=== PATIENT | female | born 1980 | race Caucasian/White ===

== ENCOUNTER 2019-05-15 09:28 | Emergency (ER) | payer SELFPAY ==
[2019-05-15 09:32] VITALS: BP 107/57; PULSE 129; RESP 18; O2SAT 98; BMI 33.4
[2019-05-15 09:53] VITALS: PULSE 126
--- NOTE | 2019-05-15 09:55 | PC.NURSE ---
Patient presents to the ER with c/o right leg pain post fall. Patient states just prior to arrival she was chasing a dog and fell, rolling onto her right leg. Patient has pain starting at the foot and moving up her leg. Pain is rated 7/10 at this time.
--- NOTE | 2019-05-15 09:59 | XR_ITS ---
WS: [id number] XR knee RT 3V* [id number] REASON FOR EXAM: fall/pain FINDINGS: Meniscal spaces are well preserved. The patellofemoral articulations are normal. The patella tibial space is normal. There is no fractures or other dyscrasias noted. XR/XR knee RT 3V* [id number] IMPRESSION: Negative right knee
--- NOTE | 2019-05-15 10:04 | W.ED.EXTPRO ---
HPI - Extremity Problem General: Chief complaint: Extremity Injury, Lower Stated complaint: RIGHT LEG PAIN Time Seen by Provider: 05/15/19 09:47 Source: patient Mode of arrival: wheelchair Limitations: no limitations History of Present Illness: HPI Narrative: Patient is a 38-year-old female presents to ED today with complaints of right lower extremity pain. Patient states she was chasing her dog who got loose and did a roll dive to try to catch him. Patient states she was able to catch the dog and walked back to her residence but states over time she began noticing pain from her toe all the way up to her hip . Patient is able to ambulate but with a limp. She denies numbness/tingling to the extremity. Denies swelling. MD Complaint: extremity pain Onset (ago): hour(s) Pain Consistency: constant Location: right Relieving factors: nothing Exacerbating factors: range of motion, weight bearing and walking Associated symptoms: Deny chest pain, fever(s) or rash Review of Systems Const: Denies: fever or chills ENMT: Denies: enlarged tonsils or painful swallowing Card: Denies: chest pain, palpitations, irregular heart rhythm, edema, swelling of feet/ankles, lightheadedness, syncope or pre-syncope Resp: Denies: shortness of breath, productive cough or chest congestion GI: Denies: abdominal pain, nausea, vomiting or diarrhea : Denies: flank pain, difficulty urinating, painful urination, urinary frequency, urinary urgency or urinary hesitancy Musc: Reports: extremity pain and joint pain; Denies: neck pain, back pain, extremity swelling, joint swelling, redness, joint warmth or limited range of motion Skin/Breast: Denies: rash Neuro: Denies: headache, numbness in extremities, weakness in extremities or changes in sensation PFS ED PFSH: Social History (Updated 04/14/19 @ 12:46 by Anita Reynoso LPN) Smoking and tobacco status: never smoked Physical Exam Const: COMMON NORMALS: no apparent distress, no limitations, alert and well nourished Resp: COMMON NORMALS: normal respiratory effort and clear to auscultation bilaterally AUSCULTATION: clear to auscultation bilaterally Cardio: COMMON NORMALS: regular rate and regular rhythm RATE: regular rate RHYTHM: regular rhythm Extremity: COMMON NORMALS: full ROM, normal capillary refill, no joint enlargement and no calf tenderness OTHER: pt has full ROM of all joint of R LE; she seems to be the most tender around R anterior knee; no swelling noted to R leg; DP/PT pulses intact; brisk cap refill Neuro: SENSORIUM/ORIENTATION: Yes alert Skin: COMMON NORMALS: no rashes or lesions noted GENERAL SKIN EXAM: no rashes or lesions noted Course Vital Signs: Vital signs: Vital Signs Pulse Rate 102 H 05/15/19 11:10 Respiratory Rate 16 05/15/19 11:10 Blood Pressure 102/81 05/15/19 11:10 Pulse Oximetry 96 05/15/19 11:10 MDM - Extremity (Nontraumatic) Imaging Data^: R knee XR: Radiologist's impression: [address] [address] XRay Report Signed Patient: Brigitte Marr Unit #: [id number] : 1980 Age/Sex: 38 / F ADM Date: 05/15/19 Loc: ER Room/Bed: Attending Dr: Ordering Provider/Ordering MD: Lu Berman Date of Service: 05/15/19 Procedure(s): XR knee RT 3V* [id number] Accession Number(s): [id number] Report Number: [id number] WS: [id number] XR knee RT 3V* [id number] REASON FOR EXAM: fall/pain FINDINGS: Meniscal spaces are well preserved. The patellofemoral articulations are normal. The patella tibial space is normal. There is no fractures or other dyscrasias noted. XR/XR knee RT 3V* [id number] IMPRESSION: Negative right knee Dictated By: Pasha Ryan DO Signed By: Pasha Ryan DO Signed Date/Time: 05/15/19 1048 DD/ 1047 Discharge Plan Discharge Patient Disposition: Home, Self-Care Clinical Impression: Sprain of right lower leg Qualifiers: Encounter type: initial encounter Qualified Code(s): S83.91XA - Sprain of unspecified site of right knee, initial encounter Condition: Stable Prescriptions: No Action Breo Ellipta 100-25 mcg/dose blister with device 1 inh INHALATION Q24H RF: 0 albuterol sulfate [Proventil HFA] 90 mcg/actuation HFA aerosol inhaler 2 puff INHALATION Q6H PRN (Reason: Shortness Of Breath) RF: 0 fexofenadine 180 mg tablet 180 mg PO DAILY RF: 0 montelukast 10 mg tablet 10 mg PO DAILY RF: 0 fluticasone propionate [Allergy Relief (fluticasone)] 50 mcg/actuation spray,suspension 1 - 2 spray INTRANASAL DAILY RF: 0 desogestrel-ethinyl estradiol [Apri] 0.15-0.03 mg tablet 1 tab PO DAILY RF: 0 albuterol sulfate 2.5 mg /3 mL (0.083 %) Solution For Nebulization 2.5 mg inhalation PRN RF: 0 Excedrin Migraine 250-250-65 mg Tablet 2 tab PO PRN RF: 0 Discharge Orders: Discharge Order (Routine); Ordered 05/15/19 Ordered By: Lu Berman Referrals: Flori Pitt MD [Primary Care Provider] - Discharge Diet: Usual diet Discharge Activity: Increase activity as tolerated and Use walker/crutches as instructed Activity Restrictions/Additional Instructions: Follow up with primary care in a week for continued pain. 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
[2019-05-15] MEDS: ketorolac 60 mg/2 mL INJ IM (10:09)
[2019-05-15 11:10] VITALS: BP 102/81; PULSE 102; RESP 16; O2SAT 96
== END 2019-05-15 11:10 | disposition home or self-care (01) ==
PROVIDERS: Emergency Provider Physician Assistant; Family Provider Family Medicine; PCP Family Medicine
DX: S83.91XA Sprain of unspecified site of right knee, initial encounter (principal); X50.0XXA Overexertion from strenuous movement or load, initial encounter
CPT/HCPCS: 73562; 96372; 99281; 99283; J1885

== ENCOUNTER → 2019-08-10 10:06 | Outpatient (BNVA) | payer SELFPAY | PROVIDERS: Family Provider Family Medicine; PCP Family Medicine; Visit Provider Nurse Practitioner Family | DX: N39.0 Urinary tract infection, site not specified (principal) | CPT/HCPCS: 81000 ==

== ENCOUNTER 2019-08-19 22:00 | Emergency (ER) | payer OTHER, SELFPAY ==
[2019-08-19 22:10] VITALS: BP 118/74; PULSE 80; RESP 16; TEMP 36.7; O2SAT 97; BMI 31.9
--- NOTE | 2019-08-19 22:50 | ED_ITS ---
HPI - Extremity Problem General: Chief complaint: Extremity Injury, Upper Stated complaint: arm swelling Time Seen by Provider: 08/19/19 22:37 History of Present Illness: HPI Narrative: 39-year-old female with multiple complaints. Her main complaint is that of right upper extremity pain and swelling. Pain starts at the elbow, and radiates down towards the wrist. There is swelling present. There is no numbness or tingling. She does note she has some numbness and pain in her left thumb without swelling. She also notes bilateral ankle swelling and pain, worsening with weightbearing. She denies any fever, rash, warmth. She denies long car trips. No prior history of DVT. MD Complaint: extremity pain and extremity swelling Onset (ago): day(s) (2) Pain Consistency: constant Location: right and upper extremity Quality: aching Radiation: distal Relieving factors: nothing Exacerbating factors: range of motion and palpation Associated symptoms: Deny chest pain, fever(s), rash or short of breath Review of Systems Const: Denies: fever(s) Eyes: Denies: change in vision or blurry vision ENMT: Denies: swelling of lips/tongue, bleeding gums, change in hearing, epist axis, post nasal drip or sinus pain Card: Denies: chest pain Resp: Denies: dyspnea, productive cough, non-productive cough or wheezing GI: Denies: abdominal pain, nausea, vomiting, rectal pain, hematochezia or melena : Denies: dysuria, urinary frequency, urinary urgency or hematuria Musc: Denies: neck pain, back pain, joint redness or joint warmth Skin/Breast: Denies: rash, pruritus or erythema Neuro: Denies: headache(s), dizziness, vertigo, confusion or seizure-like activity Psych: Denies: anxiety, visual hallucinations or auditory hallucinations PFSH ED PFSH: Social History Smoking and tobacco status: never smoked Female Reproductive History: Date of last menstrual period: 08/11/19 Physical Exam Const: GENERAL APPEARANCE: well developed ORIENTATION/CONSCIOUSNESS: Yes oriented to person, Yes oriented to place and Yes oriented to time HENMT: COMMON NORMALS: normocephalic, external ears normal and Normal external nose present HEAD & SCALP: normocephalic; no scalp tenderness FACE & SINUS: normal facial exam NOSE: Normal external nose present and No nasal discharge present EXTERNAL EAR: Yes external ears normal MOUTH: tongue normal THROAT: posterior oropharynx normal; no peritonsillar mass Eye: COMMON NORMALS: Equal, round and reactive pupils present, EOMs intact bilaterally and conjunctivae normal EYELID: eyelids normal CONJUNCTIVA: Yes conjunctivae normal PUPIL: Yes Equal, round and reactive pupils present Neck/C-Spine: GENERAL: No tracheal deviation Chest: COMMONS NORMALS: normal inspection of the chest CHEST: No tenderness Resp: COMMON NORMALS: clear to auscultation bilaterally EFFORT & INSPECTION: No tachypneic, No respiratory distress, No retractions, No uses accessory muscles and No tracheal deviation AUSCULTATION: clear to auscultation bilaterally, no rhonchi, no wheezes and lung sounds not diminished Cardio: COMMON NORMALS: regular rate and regular rhythm RATE: regular rate RHYTHM: regular rhythm HEART SOUNDS: no murmurs PERIPHERAL PULSES: radial pulses present GI: INSPECTION: No abdominal distension AUSCULTATION: No Hyperactive bowel sounds present and No Hypoactive bowel sounds present PALPATION: No Guarding due to palpation present (GI) and No Rigid due to palpation PERCUSSION: no dullness to percussion and no tympanic to percussion : COMMON NORMALS: Yes no CVA tenderness BLADDER/KIDNEY EXAM: Yes no CVA tenderness Back/Pelvis: COMMON NORMALS: no CVA tenderness Extremity: NARRATIVE EXTREMITY EXAM: Right upper extremity has some mild to moderate swelling distal to the elbow. There is mild tenderness along the forearm. There is no point tenderness. There is no elbow effusion. She has pain with elbow range of motion, but not with wrist range of motion. There is no warmth or rash Neuro: SENSORIUM/ORIENTATION: Yes oriented to person, Yes oriented to place and Yes oriented to time Psych: COMMON NORMALS: mental status grossly normal Skin: COMMON NORMALS: no rashes or lesions noted GENERAL SKIN EXAM: no rashes or lesions noted Course Vital Signs: Vital signs: Vital Signs Temperature 98.1 F 08/19/19 22:10 Pulse Rate 86 08/20/19 01:45 Respiratory Rate 18 08/20/19 01:45 Blood Pressure 108/83 08/20/19 01:45 Pulse Oximetry 97 08/20/19 01:45 MDM - Extremity (Nontraumatic) MDM Narrative: Medical decision making narrative: The 9-year-old female with right upper extremity discomfort and swelling. Her d-dimer is negative. Elbow x-ray is negative. Her ESR and CRP are not terribly elevated. She is afebrile. On further questioning, she recently completed a 7-day course of ciprofloxacin for a UTI. It is likely that she has acute tendinitis related to use of fluoroquinolone. Should be treated with a burst of steroid medication. She is now off of the Cipro. Lab Data: Labs: Lab Results 08/19/19 08/19/19 08/19/19 Range/Units 23:04 23:04 23:04 WBC 10.8 H (4.0-10.0) 10^3/ uL RBC 4.20 (4.1-5.3) 10^6/u L Hgb 12.2 (11.5-15.3) g/dL Hct 38.1 (37.0-47.0) % MCV 90.7 (81-99) fL MCH 29.0 (28.0-34.0) pg MCHC 32.0 (30.0-36.0) g/dL RDW 12.2 (12.1-15.1) % Plt Count 304 (130-400) 10^3/c mm MPV 9.7 (7.4-10.4) fL Neut % (Auto) 58.1 % Lymph % (Auto) 30.3 % Donley % (Auto) 6.5 % Eos % (Auto) 4.1 % Baso % (Auto) 0.5 % Neut # (Auto) 6.3 (1.8-7.7) 10^3/u L Lymph # (Auto) 3.3 (0.8-4.8) 10^3/u L Donley # (Auto) 0.7 (0.2-0.9) 10^3/u L Eos # (Auto) 0.4 (0.0-0.8) 10^3/u L Baso # (Auto) 0.1 (0.0-0.1) 10^3/u L Nucleated RBC % (a uto) 0 % Nucleated RBCs # 0.0 /100WBC ESR 20 H (0-15) mm/hr D-Dimer 0.41 (0-0.59) ug/mIFE U Sodium (136-145) mmol/L Potassium (3.5-5.1) mmol/L Chloride (98-107) mmol/L Carbon Dioxide (22-29) mmol/L Anion Gap (5-19) BUN (6-20) mg/dL Creatinine (0.5-0.9) mg/dL GFR Calculation (90-130) mL/min Glucose (65-115) mg/dL Calculated Osmolal ity (285-295) mOsm/k g Uric Acid (2.4-5.7) mg/dL Calcium (8.5-10.5) mg/dL Total Bilirubin (0.15-1.2) mg/dL AST (0-32) U/L ALT (0-33) U/L Alkaline Phosphata se (35-105) IU/L Creatine Kinase (26-192) U/L C-Reactive Protein (0.0-4.9) mg/L Total Protein (6.6-8.7) g/dL Albumin (3.5-5.2) g/dL Globulin (1.3-4.6) g/dL HCG, Qual (Negative) Urine Color (Yellow) Urine Appearance (CLEAR) Urine pH (5-7) Ur Specific Gravit y (1.005-1.030) Urine Protein (Negative) Urine Glucose (UA) (Normal) Urine Ketones (Negative) Urine Blood (Negative) Urine Nitrate (Negative) Urine Bilirubin (NEGATIVE) Urine Urobilinogen (Negative) mg/dL Ur Leukocyte Cortney ase (Negative) Urine RBC (0-2) /hpf Urine WBC (0-5) /hpf Ur Squamous Epith Cells (0-5) Urine Bacteria (NONE) Urine Mucus 08/19/19 08/19/19 08/20/19 Range/Units 23:04 23:04 01:05 WBC (4.0-10.0) 10^3/ uL RBC (4.1-5.3) 10^6/u L Hgb (11.5-15.3) g/dL Hct (37.0-47.0) % MCV (81-99) fL MCH (28.0-34.0) pg MCHC (30.0-36.0) g/dL RDW (12.1-15.1) % Plt Count (130-400) 10^3/c mm MPV (7.4-10.4) fL Neut % (Auto) % Lymph % (Auto) % Donley % (Auto) % Eos % (Auto) % Baso % (Auto) % Neut # (Auto) (1.8-7.7) 10^3/u L Lymph # (Auto) (0.8-4.8) 10^3/u L Donley # (Auto) (0.2-0.9) 10^3/u L Eos # (Auto) (0.0-0.8) 10^3/u L Baso # (Auto) (0.0-0.1) 10^3/u L Nucleated RBC % (a uto) % Nucleated RBCs # /100WBC ESR (0-15) mm/hr D-Dimer (0-0.59) ug/mIFE U Sodium 138 (136-145) mmol/L Potassium 3.8 (3.5-5.1) mmol/L Chloride 102 (98-107) mmol/L Carbon Dioxide 25 (22-29) mmol/L Anion Gap 14.8 (5-19) BUN 13 (6-20) mg/dL Creatinine 0.9 (0.5-0.9) mg/dL GFR Calculation 70.1 L (90-130) mL/min Glucose 95 (65-115) mg/dL Calculated Osmolal ity 282 L (285-295) mOsm/k g Uric Acid 4.7 (2.4-5.7) mg/dL Calcium 9.9 (8.5-10.5) mg/dL Total Bilirubin 0.2 (0.15-1.2) mg/dL AST 19 (0-32) U/L ALT 15 (0-33) U/L Alkaline Phosphata se 74 (35-105) IU/L Creatine Kinase 85 (26-192) U/L C-Reactive Protein 8.1 H (0.0-4.9) mg/L Total Protein 7.7 (6.6-8.7) g/dL Albumin 4.3 (3.5-5.2) g/dL Globulin 3.4 (1.3-4.6) g/dL HCG, Qual Negative (Negative) Urine Color Yellow (Yellow) Urine Appearance Sl hazy (CLEAR) Urine pH 5 (5-7) Ur Specific Gravit y 1.020 (1.005-1.030) Urine Protein Neg (Negative) Urine Glucose (UA) Norm (Normal) Urine Ketones Negative (Negative) Urine Blood Neg (Negative) Urine Nitrate Negative (Negative) Urine Bilirubin Neg (NEGATIVE) Urine Urobilinogen Norm (Negative) mg/dL Ur Leukocyte Cortney ase Negative (Negative) Urine RBC Rare (0-2) /hpf Urine WBC 0-4 H (0-5) /hpf Ur Squamous Epith Cells 15-25 H (0-5) Urine Bacteria Trace (NONE) Urine Mucus 1+ Discharge Plan Discharge Patient Disposition: Home, Self-Care Clinical Impression: Tendonitis of elbow or forearm Condition: Stable Prescriptions: New Medrol (Jarod) 4 mg tablets,dose pack See Rx Instructions .ROUTE .COMPLEX Qty: 21 RF: 0 No Action mupirocin 2 % ointment 1 applic TOPICAL TID Qty: 30 RF: 0 Breo Ellipta 100-25 mcg/dose blister with device 1 inh INHALATION Q24H RF: 0 albuterol sulfate [Proventil HFA] 90 mcg/actuation HFA aerosol inhaler 2 puff INHALATION Q6H PRN (Reason: Shortness Of Breath) RF: 0 fexofenadine 180 mg tablet 180 mg PO DAILY RF: 0 montelukast 10 mg tablet 10 mg PO DAILY RF: 0 fluticasone propionate [Allergy Relief (fluticasone)] 50 mcg/actuation spray,suspension 1 - 2 spray INTRANASAL DAILY RF: 0 desogestrel-ethinyl estradiol [Apri] 0.15-0.03 mg tablet 1 tab PO DAILY RF: 0 ciprofloxacin HCl [Cipro] 500 mg tablet 500 mg PO BID 7 Days Qty: 14 RF: 0 albuterol sulfate 2.5 mg /3 mL (0.083 %) Solution For Nebulization 2.5 mg inhalation PRN RF: 0 Excedrin Migraine 250-250-65 mg Tablet 2 tab PO PRN RF: 0 Discharge Orders: Discharge Order (Routine); Ordered 08/20/19 Ordered By: Kelvin Muñiz Referrals: Flori Pitt MD [Primary Care Provider] - 4-7 days Discharge Diet: Advance as tolerated Discharge Activity: Increase activity as tolerated Patient Instructions: Tendinitis (ED) Activity Restrictions/Additional Instructions: Return for fever, worsening pain or swelling despite treatment, other concerning symptoms Discharge Date/Time: 08/20/19 01:50 Coding Level of Care Code 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
--- NOTE | 2019-08-19 23:00 | XRR_ITS ---
PROCEDURE INFORMATION: Exam: XR Right Elbow Exam date and time: 08/19/2019 11:02 PM Age: 39 years old Clinical indication: Swelling; Elbow; Right; Additional info: Pain TECHNIQUE: Imaging protocol: XR Right elbow. Views: 3 or more views. COMPARISON: No relevant prior studies available. FINDINGS: Bones/joints: Normal. Soft tissues: Normal. XR/XR elbow RT min 3V* [id number] IMPRESSION: No acute findings.
[2019-08-19 23:15] LABS: Basophils # 0.1 10^3/uL (0.0-0.1); Basophils % 0.5 %; Eosinophils # 0.4 10^3/uL (0.0-0.8); Eosinophils % 4.1 %; Hematocrit 38.1 % (37.0-47.0); Hemoglobin 12.2 g/dL (11.5-15.3); Lymphocytes # 3.3 10^3/uL (0.8-4.8); Lymphocytes % 30.3 %; Mean Corpuscular Volume 90.7 fL (81-99); Mean Platelet Volume 9.7 fL (7.4-10.4); Monocytes # 0.7 10^3/uL (0.2-0.9); Monocytes % 6.5 %; Neutrophils # 6.3 10^3/uL (1.8-7.7); Neutrophils % 58.1 %; Nucleated Red Blood Cells % 0 %; Platelet Count 304 10^3/cmm (130-400); Red Cell Distribution Width 12.2 % (12.1-15.1); White Blood Count 10.8 10^3/uL (4.0-10.0)
[2019-08-19 23:26] LABS: D Dimer 0.41 ug/mIFEU (0-0.59)
[2019-08-19 23:27] LABS: HCG, Serum Qual Negative (Negative)
[2019-08-19 23:33] LABS: Alanine Aminotransferase 15 U/L (0-33); Albumin Level 4.3 g/dL (3.5-5.2); Alkaline Phosphatase 74 IU/L (35-105); Anion Gap 14.8 (5-19); Aspartate Amino Transferase 19 U/L (0-32); Blood Urea Nitrogen 13 mg/dL (6-20); C Reactive Protein 8.1 mg/L (0.0-4.9); Calcium 9.9 mg/dL (8.5-10.5); Carbon Dioxide 25 mmol/L (22-29); Chloride 102 mmol/L (98-107); Creatine Phosphokinase 85 U/L (26-192); Globulin 3.4 g/dL (1.3-4.6); Glomerular Filtration Rate 70.1 mL/min (90-130); Glucose 95 mg/dL (65-115); Osmolality Calculated 282 mOsm/kg (285-295); Potassium 3.8 mmol/L (3.5-5.1); Sodium 138 mmol/L (136-145); Total Bilirubin 0.2 mg/dL (0.15-1.2); Total Protein 7.7 g/dL (6.6-8.7); Uric Acid 4.7 mg/dL (2.4-5.7)
[2019-08-20 00:18] LABS: Erythrocyte Sedimentation Rate 20 mm/hr (0-15)
[2019-08-20 00:59] VITALS: BP 135/87; PULSE 78; PULSE 86; RESP 18; O2SAT 99
[2019-08-20 01:26] LABS: Add Urine Microscopic? YES; Bilirubin Urine Neg (NEGATIVE); Blood Urine Neg (Negative); Glucose Urine UA Norm (Normal); Ketones Urine Negative (Negative); Leukocyte Esterase Urine Negative (Negative); Nitrate Urine Negative (Negative); Protein Urine Neg (Negative); Urine Appearance SL Hazy (CLEAR); Urine Color Yellow (Yellow); Urobilinogen Urine Norm (Negative); pH Urine 5 (5-7)
[2019-08-20 01:28] LABS: Bacteria Urine TRACE; RBC Urine RARE /hpf (0-2); Squamous Epithelial Cell Urine 15-25 (0-5); WBC Urine 0-4 /hpf (0-5)
[2019-08-20 01:29] LABS: Add Urine Culture? No; Mucus Urine 1+
[2019-08-20] MEDS: predniSONE 20 mg Tablet 40 MG PO (01:36)
[2019-08-20 01:45] VITALS: BP 108/83; PULSE 86; RESP 18; O2SAT 97
== END 2019-08-20 01:50 | disposition home or self-care (01) ==
PROVIDERS: Emergency Provider Emergency Medicine; PCP Family Medicine
DX: M77.9 Enthesopathy, unspecified (principal)
CPT/HCPCS: 12345; 36415; 73080; 80053; 81001; 82550; 84550; 84703; 85025; 85378; 85651; 86140; 99282; 99283; J7512

== ENCOUNTER 2019-10-11 14:16 | Emergency (ER) | payer OTHER, SELFPAY ==
[2019-10-11 14:18] VITALS: BMI 31.9
[2019-10-11 14:22] VITALS: BP 127/92; PULSE 83; RESP 16; TEMP 36.7; O2SAT 96
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
[2019-10-11] MEDS: HYDROcodone-acetaminophen 7.5-325 mg Tablet 1 TAB PO (14:45)
[2019-10-11 16:45] VITALS: BP 115/64; PULSE 76; RESP 17; O2SAT 98
== END 2019-10-11 16:46 | disposition home or self-care (01) ==
PROVIDERS: Emergency Provider Emergency Medicine; PCP Nurse Practitioner Family
DX: S13.4XXA Sprain of ligaments of cervical spine, initial encounter (principal); M25.512 Pain in left shoulder; V43.52XA Car driver injured in collision with other type car in traffic accident, initial encounter
CPT/HCPCS: 12345; 71045; 72040; 73030; 99282; 99283

== ENCOUNTER 2019-11-01 06:56 | Outpatient (CLI) | payer SELFPAY ==
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
== END 2019-11-01 06:57 | disposition home or self-care (01) ==
LOC: RADSHAW 06:59
PROVIDERS: PCP Nurse Practitioner Family; Visit Provider Nurse Practitioner Family
DX: S43.52XA Sprain of left acromioclavicular joint, initial encounter (principal); X58.XXXA Exposure to other specified factors, initial encounter
CPT/HCPCS: 73221

== ENCOUNTER 2019-12-27 16:55 | Emergency (ER) | payer SELFPAY ==
--- NOTE | 2019-12-27 16:56 | XR_ITS ---
WS: [id number] Portable AP upright chest, 12/27/2019 Clinical Data: sob Comparison: Portable chest, 10/11/2019. Findings: No nodules, masses or effusions are seen. The heart is normal. The pulmonary vascularity is not increased. No pneumonia or pneumothorax is seen. XR/XR chest 1V portable [id number] Impression: Negative chest.
[2019-12-27 17:17] VITALS: BP 130/102; PULSE 87; RESP 18; TEMP 37; O2SAT 100; BMI 33.4
[2019-12-27 17:36] VITALS: BP 118/58; PULSE 100; RESP 20; O2SAT 98
--- NOTE | 2019-12-27 17:37 | ECG_ITS ---
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 Measurements Intervals B[place]e Rate: 93 P: 49 NM: 155 QRS: 13 QRSD: 85 T: 14 QT: 353 QTc: 440 Interpretive Statements SINUS RHYTHM LOW QRS VOLTAGE IN PRECORDIAL LEADS [QRS DEFLECTION < 1.0 mV IN CHEST LEADS] POSSIBLE ANTERIOR MYOCARDIAL INFARCTION [30 ms Q WAVE IN V3/V4, OR R < 0.2 mV IN V4], OF INDETERMINATE AGE Compared to ECG 01/13/2019 21:29:55 Low QRS voltage now present Sinus arrhythmia no longer present Myocardial infarct finding still present Electronically Signed On 12-27-2019 18:36:40 CDT by Earle Guzmán M.D. [id number]
--- NOTE | 2019-12-27 17:40 | ED_ITS ---
HPI - SOB/Dyspnea General: Chief Complaint: Shortness of Breath/Dyspnea Stated Complaint: COVID SYMPTOMS Time Seen by Provider: 12/27/19 17:22 Source: patient Mode of arrival: ambulatory Limitations: no limitations History of Present Illness: HPI Narrative: 39-year-old female states she has history of asthma and has had a cough along with some slight dyspnea over the last 4 to 5 days. She has had low-grade fevers. She states she is concerned that she has had multiple coworkers that is had coronavirus. She denies any vomiting or diarrhea. She denies any chest pain. Patient is in no distress here and has a pulse ox of 99% on room air. Associated symptoms: Deny abdominal pain, chest pain, fever(s), nausea or vomiting Review of Systems Const: Denies: fever(s), chills, body aches or change in appetite Eyes: Denies: blurry vision or eye discomfort ENMT: Denies: throat pain or dental pain Card: Denies: chest pain Resp: Reports: dyspnea, non-productive cough and wheezing GI: Denies: abdominal pain, nausea, vomiting or diarrhea : Denies: dysuria Musc: Denies: neck pain or back pain Skin/Breast: Denies: rash Neuro: Denies: headache(s) Psych: Denies: depression Silvio/Lymph: Denies: easy bruising All/Imm: Denies: urticaria PFSH ED PFSH: Social History Smoking and tobacco status: never smoked Female Reproductive History: Date of last menstrual period: 12/27/19 Physical Exam Const: COMMON NORMALS: no acute distress, patient oriented x3 and healthy appearing HENMT: COMMON NORMALS: normocephalic and atraumatic HEAD & SCALP: normocephalic and atraumatic Eye: COMMON NORMALS: Equal, round and reactive pupils present and EOMs intact bilaterally PUPIL: Yes Equal, round and reactive pupils present Neck/C-Spine: COMMON NORMALS: full ROM and supple Chest: COMMONS NORMALS: normal inspection of the chest and normal palpation of entire chest wall Resp: COMMON NORMALS: normal respiratory effort, No retractions, No use of accessory muscles and clear to auscultation bilaterally AUSCULTATION: clear to auscultation bilaterally Cardio: COMMON NORMALS: regular rate, regular rhythm and No murmurs present (Cardio) RATE: regular rate RHYTHM: regular rhythm GI: COMMON NORMALS: Normal to inspection, nondistended, normoactive bowel sounds present, Soft to palpation, non-tender and no masses PALPATION: Yes Soft to palpation Extremity: COMMON NORMALS: normal to inspection and full ROM Neuro: COMMON NORMALS: patient oriented x3, moves all extremities and no focal motor deficits Psych: COMMON NORMALS: mental status grossly normal, Normal thought process present and cooperative THOUGHT PROCESS: Normal thought process present Skin: COMMON NORMALS: no rashes or lesions noted and no wounds GENERAL SKIN EXAM: no rashes or lesions noted Course Vital Signs: Vital signs: Vital Signs Temperature 98.6 F 12/27/19 17:17 Pulse Rate 100 12/27/19 17:36 Respiratory Rate 20 H 12/27/19 17:36 Blood Pressure 118/58 12/27/19 17:36 Pulse Oximetry 98 12/27/19 17:36 MDM - SOB/Dyspnea MDM Narrative: Medical decision making narrative: Patient presents here with cough and does have a history of asthma. She has no wheezing here but did give her Decadron and she is to continue her albuterol. She has no signs of cardiac cause or pulmonary embolism. X-ray here was clear. She has had COVID exposure and will test her for COVID and she is to self quarantine until result. She is stable for discharge and return if worsening. Imaging Data^: CXR: Attestation: I personally reviewed and interpreted this imaging study as follows: My impression: no acute abnormality Discharge Plan Discharge Patient Disposition: Home Clinical Impression: Asthma with exacerbation Qualifiers: Asthma severity: unspecified severity Asthma persistence: unspecified Qualified Code(s): J45.901 - Unspecified asthma with (acute) exacerbation Condition: Stable Prescriptions: No Action Breo Ellipta 100-25 mcg/dose blister with device 1 inh INHALATION Q24H RF: 0 albuterol sulfate [Proventil HFA] 90 mcg/actuation HFA aerosol inhaler 2 puff INHALATION Q4H PRN (Reason: Shortness Of Breath) RF: 0 fexofenadine 180 mg tablet 180 mg PO DAILY RF: 0 montelukast 10 mg tablet 10 mg PO DAILY RF: 0 fluticasone propionate [Allergy Relief (fluticasone)] 50 mcg/actuation spray,suspension 1 spray INTRANASAL DAILY PRN (Reason: UNKNOWN) RF: 0 acetaminophen [Tylenol Arthritis Pain] 650 mg Tablet Extended Release 1,300 mg PO PRN RF: 0 albuterol sulfate 2.5 mg /3 mL (0.083 %) Solution For Nebulization 2.5 mg inhalation PRN RF: 0 Discharge Orders: Discharge Order (Routine); Ordered 12/27/19 Ordered By: Tamir Mathias Referrals: Marcia Thomas FNP [Primary Care Provider] - 1-3 days Discharge Diet: Advance as tolerated Discharge Activity: Resume usual activity Patient Instructions: Asthma (ED) Stand Alone Forms: Work/School Release Coding Level of Care Code ED Dean For Student Affairs for Carolg Fwd Exam Comprehensive
[2019-12-27] MEDS: dexamethasone 10 mg/mL INJ IM (17:51)
[2019-12-27 18:49] VITALS: BP 117/62; PULSE 76; RESP 18; TEMP 37.1; O2SAT 98
[2019-12-29 10:02] LABS: Quest SARS-CoV-2 RNA NOT DETECTED (NOT DETECTED)
== END 2019-12-27 18:53 | disposition home or self-care (01) ==
PROVIDERS: Emergency Provider Emergency Medicine; PCP Nurse Practitioner Family
DX: J45.901 Unspecified asthma with (acute) exacerbation (principal)
CPT/HCPCS: 12345; 71045; 87635; 93005; 96372; 99282; 99283; J1100

== ENCOUNTER 2020-04-28 10:55 | Emergency (ER) | payer SELFPAY ==
[2020-04-28 11:10] VITALS: BP 131/86; PULSE 75; RESP 16; TEMP 36.2; O2SAT 98; BMI 32.8
--- NOTE | 2020-04-28 11:18 | W.ED.EYEPROB ---
HPI - Eye Problem General: Chief complaint: Eye Problems Stated complaint: Sent from /Right eye irritation Time Seen by Provider: 04/28/20 11:17 History of Present Illness: HPI Narrative: Patient is a 39-year-old female comes to the ED with right eye irritation. Patient has a history of asthma and allergic rhinitis. Patient was seen at urgent care and then sent over here to the ED for further evaluation. Patient says symptoms started on Wednesday morning when she woke up. She had some right eye pain, periorbital swelling tenderness. She also had some redness in her eye. She rates her eye discomfort currently a 5 out of 10. She has not taken any [id number] pain meds before coming to the ED and states she does not need any pain meds currently. Patient denies any facial trauma or injury. She does state that she sleeps with cath, and sure if that might have something to do with her current symptoms. Denies any fever, chills, chest pain, shortness of breath, abdominal pain, bladder or bowel symptoms. Patient does wear glasses and sees an eye doctor yearly. Associated symptoms: Reports nausea; Denies fever(s), headache(s), neck pain or vomiting Review of Systems Const: Denies: fever(s), chills or fatigue Eyes: Reports: blurry vision (fuzzy), eye discomfort and eye redness; Denies: change in vision ENMT: Denies: throat pain, odynophagia, nasal discharge or nasal congestion Card: Denies: chest pain, palpitations, edema, swelling of feet/ankles, dyspnea on exertion or orthopnea Resp: Denies: dyspnea, productive cough or non-productive cough GI: Reports: nausea; Denies: abdominal pain, vomiting, diarrhea, constipation or hematochezia : Denies: flank pain, dysuria or hematuria Musc: Denies: neck pain, back pain or extremity swelling Skin/Breast: Denies: rash or new lesions Neuro: Denies: headache(s), numbness in extremities or weakness in extremities PFS ED PFSH: Social History Smoking and tobacco status: never smoked Alcohol intake: never Substance/Drug Use: never Female Reproductive History: Date of last menstrual period: 04/25/20 Physical Exam Const: COMMON NORMALS: no acute distress, patient oriented x3, healthy appearing and alert GENERAL APPEARANCE: cooperative and comfortable HENMT: COMMON NORMALS: normocephalic HEAD & SCALP: normocephalic FACE & SINUS: sinus tenderness ethmoid (right side) and maxillary (right side) MOUTH: Normal oral and palatal mucosa present THROAT: posterior oropharynx normal and uvula midline Eye: COMMON NORMALS: Equal, round and reactive pupils present and EOMs intact bilaterally PERIORBITAL: periorbital findings abnormal positive right periorbital tenderness (inferior periorbital tenderness); no swelling and no erythema EYELID: eyelids normal CONJUNCTIVA: Yes conjunctival abnormal positive right subconjunctival hemorrhage PUPIL: Yes Equal, round and reactive pupils present SLIT LAMP EXAM: Yes slit lamp exam performed with fluorescein and Yes cornea Cornea details: linear corneal abrasion (Small linear abrasion on the lateral aspect of the right eye.) OTHER: I used to Icare Tonomotor on patient to obtain eye pressure- right Eye pressure 14mm hg. Neck/C-Spine: COMMON NORMALS: supple GENERAL: Yes normal visual inspection Resp: COMMON NORMALS: normal respiratory effort, No retractions, No use of accessory muscles and clear to auscultation bilaterally AUSCULTATION: clear to auscultation bilaterally Cardio: COMMON NORMALS: regular rate, regular rhythm, S1 normal heart sound present, S2 normal heart sound present, No gallops present (Cardio), No clicks present (Cardio), No murmurs present (Cardio) and Peripheral pulses 2+ throughout RATE: regular rate RHYTHM: regular rhythm HEART SOUNDS: S1 normal heart sound present and S2 normal heart sound present PERIPHERAL PULSES: Peripheral pulses 2+ throughout GI: COMMON NORMALS: Normal to inspection, nondistended, normoactive bowel sounds present, Soft to palpation, non-tender and no masses PALPATION: Yes Soft to palpation : COMMON NORMALS: Yes no CVA tenderness BLADDER/KIDNEY EXAM: Yes no CVA tenderness Back/Pelvis: COMMON NORMALS: no CVA tenderness Extremity: COMMON NORMALS: normal to inspection Neuro: COMMON NORMALS: patient oriented x3 and moves all extremities SENSORIUM/ORIENTATION: Yes alert Skin: GENERAL SKIN EXAM: dry skin Course Vital Signs: Vital signs: Vital Signs Temperature 97.2 F L 04/28/20 11:10 Pulse Rate 72 04/28/20 13:08 Respiratory Rate 18 04/28/20 13:08 Blood Pressure 129/81 04/28/20 13:08 Pulse Oximetry 98 04/28/20 13:08 MDM - Eye Problem MDM Narrative: Medical decision making narrative: Patient is a 39-year-old female comes to the ED with right eye discomfort and redness. Symptoms started 3 days ago and she woke up on Roc morning with the symptoms. Patient had some right maxillary and ethmoid sinus tenderness. Fluorescein dye and slit lamp exam performed showing a small linear abrasion to cornea. I cared tonometer of right eye showed normal pressure of 14 mm hg, CT of head showed no acute intracranial findings, ethmoid sinusitis identified. Patient diagnosed with corneal abrasion and sinusitis. Patient discharged on mithramycin ointment, Augmentin and prednisone. She was told to follow-up with PCP or eye doctor in the next 7 to 10 days. She was instructed that if her eye symptoms do not improve in the next 48 hours to come back here to the ED or go to eye doctor immediately. Patient understood agree with plan. Imaging Data^: CT Head: Attestation: I personally reviewed and interpreted this imaging study as follows: Radiologist's impression: [employer] [address] [address] Scan Report Signed Patient: Brigitte Marr Unit #: [id number] : 1980 Age/Sex: 39 / F ADM Date: 04/28/20 Loc: ER Room/Bed: Attending Dr: Ordering Provider/Ordering MD: Mynor Razo Date of Service: 04/28/20 Procedure(s): CT head wo con* [id number] Accession Number(s): [id number] Report Number: [id number] PROCEDURE INFORMATION: Exam: CT Head Without Contrast Exam date and time: 04/28/2020 12:11 PM Age: 39 years old Clinical indication: : Nausea with right eye pain. TECHNIQUE: Imaging protocol: Computed tomography of the head without contrast. Radiation optimization: All CT scans at this facility use at least one of these dose optimization techniques: automated exposure control; mA and/or kV adjustment per patient size (includes targeted exams where dose is matched to clinical indication); or iterative reconstruction. COMPARISON: CT HEAD 01/13/2019 9:12 PM RADIATION DOSE METRICS: Total DLP (mGy-cm): 765.93 FINDINGS: Brain: No acute brain parenchymal abnormality. No intracranial hemorrhage. No extraaxial fluid collections. Cerebral ventricles: No hydrocephalus. Bones/joints: No calvarial fracture. Paranasal sinuses: Mild bilateral ethmoid mucoperiosteal thickening. No fluid in the visualized paranasal sinuses. Mastoid air cells: The visualized mastoid air cells are aerated. Orbital cavity: The globes are normal and symmetric. No intraorbital inflammation or mass. Soft tissues: No acute soft tissue abnormality. CT/CT head wo con* [id number] IMPRESSION: No acute intracranial abnormality. Radiation Dose CTDIVOL = (mGy): DLP = 765.93 (mGy-cm) Dictated By: Casey Soto Signed By: Casey Soto Signed Date/Time: 04/28/20 124 DD/ 1240 Discharge Plan Discharge Patient Disposition: Home Clinical Impression: Corneal abrasion Qualifiers: Encounter type: initial encounter Laterality: right Qualified Code(s): S05.01XA - Injury of conjunctiva and corneal abrasion without foreign body, right eye, initial encounter Sinusitis Qualifiers: Sinusitis location: ethmoidal Chronicity: acute Recurrence: non-recurrent Qualified Code(s): J01.20 - Acute ethmoidal sinusitis, unspecified Condition: Stable Prescriptions: New Augmentin 500-125 mg tablet 1 tab PO BID 10 Days Qty: 20 RF: 0 erythromycin 5 mg/gram (0.5 %) ointment 1 applic ophthalmic (eye) Q8H 5 Days Qty: 3.5 RF: 0 prednisone 50 mg tablet 50 mg PO DAILY 5 Days Qty: 5 RF: 0 No Action Breo Ellipta 100-25 mcg/dose blister with device 1 inh INHALATION Q24H RF: 0 albuterol sulfate [Proventil HFA] 90 mcg/actuation HFA aerosol inhaler 2 puff INHALATION Q4H PRN (Reason: Shortness Of Breath) RF: 0 fexofenadine 180 mg tablet 180 mg PO DAILY RF: 0 montelukast 10 mg tablet 10 mg PO DAILY RF: 0 fluticasone propionate [Allergy Relief (fluticasone)] 50 mcg/actuation spray,suspension 1 spray INTRANASAL DAILY PRN (Reason: UNKNOWN) RF: 0 acetaminophen [Tylenol Arthritis Pain] 650 mg Tablet Extended Release 1,300 mg PO PRN RF: 0 albuterol sulfate 2.5 mg /3 mL (0.083 %) Solution For Nebulization 2.5 mg inhalation PRN RF: 0 Discharge Orders: Discharge ED (Routine); Ordered 04/28/20 Ordered By: Mynor Razo Referrals: Marcia Thomas FNP [Primary Care Provider] - Discharge Diet: Regular Discharge Activity: Resume usual activity Patient Instructions: Sinusitis (ED), Corneal Abrasion (ED) Activity Restrictions/Additional Instructions: Follow-up with medical provider as directed. Contact your eye doctor and set up an appointment with them in the next 7 to 10 days. If within 48 hours your eyes not improving return to ED or go to eye doctor immediately. Take full course of antibiotics as prescribed. Return to the ER or your medical provider if condition worsens. Please read and understand discharge instructions. If any questions, please ask. Coding Level of Care Code ED Primer Assembler for Efrain Fwneva Exam Comprehensive
--- NOTE | 2020-04-28 12:02 | CTR_ITS ---
PROCEDURE INFORMATION: Exam: CT Head Without Contrast Exam date and time: 04/28/2020 12:11 PM Age: 39 years old Clinical indication: : Nausea with right eye pain. TECHNIQUE: Imaging protocol: Computed tomography of the head without contrast. Radiation optimization: All CT scans at this facility use at least one of these dose optimization techniques: automated exposure control; mA and/or kV adjustment per patient size (includes targeted exams where dose is matched to clinical indication); or iterative reconstruction. COMPARISON: CT HEAD 01/13/2019 9:12 PM RADIATION DOSE METRICS: Total DLP (mGy-cm): 765.93 FINDINGS: Brain: No acute brain parenchymal abnormality. No intracranial hemorrhage. No extraaxial fluid collections. Cerebral ventricles: No hydrocephalus. Bones/joints: No calvarial fracture. Paranasal sinuses: Mild bilateral ethmoid mucoperiosteal thickening. No fluid in the visualized paranasal sinuses. Mastoid air cells: The visualized mastoid air cells are aerated. Orbital cavity: The globes are normal and symmetric. No intraorbital inflammation or mass. Soft tissues: No acute soft tissue abnormality. CT/CT head wo con* [id number] IMPRESSION: No acute intracranial abnormality. Radiation Dose CTDIVOL = (mGy): DLP = 765.93 (mGy-cm)
[2020-04-28] MEDS: fluorescein 1 mg Strip EYE-RIGHT (12:13)
[2020-04-28] MEDS: eye irrigation 30 mL Btl EYE-RIGHT (12:13)
[2020-04-28] MEDS: erythromycin Op Oint 1 gm 1 APPLIC EYE-RIGHT (12:58)
[2020-04-28 13:08] VITALS: BP 129/81; PULSE 72; RESP 18; O2SAT 98
== END 2020-04-28 13:10 | disposition home or self-care (01) ==
PROVIDERS: Emergency Provider Physician Assistant; PCP Nurse Practitioner Family
DX: S05.01XA Injury of conjunctiva and corneal abrasion without foreign body, right eye, initial encounter (principal); J01.20 Acute ethmoidal sinusitis, unspecified; X58.XXXA Exposure to other specified factors, initial encounter
CPT/HCPCS: 12345; 70450; 99281; 99283

== ENCOUNTER 2020-05-31 10:48 | Emergency (ER) | payer SELFPAY ==
[2020-05-31 10:59] VITALS: BP 127/75; PULSE 88; RESP 17; TEMP 37; O2SAT 95; BMI 33.4
[2020-05-31 11:06] VITALS: BP 127/75; PULSE 82; RESP 17; O2SAT 96
--- NOTE | 2020-05-31 11:31 | W.ED.ABDPA2 ---
HPI - Abdominal Pain General: Chief Complaint: Abdominal Pain Stated Complaint: AB PAIN Time Seen by Provider: 05/31/20 11:01 Source: patient Mode of arrival: ambulatory Limitations: no limitations History of Present Illness: HPI narrative: This is a 39-year-old female patient who presents to the emergency department with complaints of nausea when she woke up about an hour prior to arrival. The nausea was followed by abdominal pain in the lower abdomen. Shortly after that the pain worsened while she was driving to work and she has nausea but no vomiting. Because of how severe the pain is she is here for evaluation. MD elicited complaint: abdominal pain Pertinent past history: gastritis Onset (ago): hour(s) (1) Pain Consistency: constant Location: Periumbilical and Suprapubic Severity: severe Quality: stabbing Radiation: none Migration to: no migration Exacerbating factors: nothing Relieving factors: nothing Associated Symptoms: Reports nausea; Denies anorexia, belching, bloating, change in bowel habits, change in stool character, chills, coffee ground emesis, constipation, GI cramping, diarrhea, dyspepsia, dysuria, excessive flatus, fever(s), heartburn, hematochezia, hematuria, hematemesis, fecal incontinence, loose stools, melena, poor appetite, syncope and vomiting Related Data: Date of Last Menstrual Period: 05/26/20 Review of Systems General: Reports: 10 or more systems reviewed and unremarkable except in HPI and below Const: Denies: fever(s) or chills Eyes: Denies: change in vision or blurry vision ENMT: Denies: throat pain, enlarged tonsils, odynophagia, hoarseness, mouth pain or swelling of lips/tongue Card: Denies: syncope Resp: Denies: dyspnea, productive cough or non-productive cough GI: Reports: nausea; Denies: vomiting, hematemesis, coffee ground emesis, heartburn, diarrhea, constipation, bloating, GI cramping, belching, excessive flatus, fecal incontinence, change in bowel habits, change in stool character, hematochezia or melena : Denies: dysuria or hematuria Musc: Denies: neck pain, back pain or extremity swelling Skin/Breast: Denies: rash, pruritus or erythema Neuro: Denies: headache(s), numbness in extremities or weakness in extremities Endo: Denies: polyuria, polydipsia or tired all the time PFSH ED PFSH: Social History Smoking and tobacco status: never smoked Alcohol intake: never Female Reproductive History: Date of last menstrual period: 05/26/20 Physical Exam Const: COMMON NORMALS: no acute distress, average body habitus, patient oriented x3, no limitations, healthy appearing, alert and well nourished HENMT: COMMON NORMALS: normocephalic, atraumatic and moist oral mucous membranes HEAD & SCALP: normocephalic and atraumatic Neck/C-Spine: COMMON NORMALS: no meningeal signs and no JVD Resp: COMMON NORMALS: normal respiratory effort, No retractions, No use of accessory muscles, clear to auscultation bilaterally and percussion normal AUSCULTATION: clear to auscultation bilaterally PERCUSSION: percussion normal Cardio: COMMON NORMALS: no JVD, regular rate, regular rhythm, S1 normal heart sound present, S2 normal heart sound present, No gallops present (Cardio), No clicks present (Cardio), No murmurs present (Cardio), No rub (Cardio) and Peripheral pulses 2+ throughout RATE: regular rate RHYTHM: regular rhythm HEART SOUNDS: S1 normal heart sound present and S2 normal heart sound present PERIPHERAL PULSES: Peripheral pulses 2+ throughout GI: COMMON NORMALS: Normal to inspection, nondistended, normoactive bowel sounds present, Soft to palpation, No hepatosplenomegaly present, no masses and no bruits PALPATION: Yes Soft to palpation, Yes Tenderness to palpation present (GI) (periumbilical) and Yes No hepatosplenomegaly present Extremity: COMMON NORMALS: normal to inspection, full ROM, capillary refill normal, no calf tenderness and no pedal edema Neuro: COMMON NORMALS: patient oriented x3 SENSORIUM/ORIENTATION: Yes alert MENINGEAL SIGNS: Yes no meningeal signs Skin: COMMON NORMALS: no rashes or lesions noted, no wounds, turgor normal, no jaundice, no petechiae and no mottling GENERAL SKIN EXAM: no rashes or lesions noted and turgor normal Course Reevaluation(s): Reevaluation #1: Pain has resolved. Discussed her lab findings with, all labs are completely normal including CRP, normal white cell count. At this time there is no indication for imaging and so we will discharge her. We will treat her as a case of gastritis. She is advised to return for any concerns or if symptoms get worse. The patient and her voiced understanding and all questions answered. Time: 13:28 Vital Signs: Vital signs: Vital Signs Temperature 98.6 F 05/31/20 10:59 Pulse Rate 75 05/31/20 13:19 Respiratory Rate 16 05/31/20 13:19 Blood Pressure 102/71 05/31/20 13:19 Pulse Oximetry 96 05/31/20 13:19 MDM - Abdominal Pain MDM Narrative: Medical decision making narrative: 39-year-old female patient who presents to the emergency department with abdominal pain. Evaluation in the ED is unremarkable and she has normal labs. No indication for imaging at this time, she will be managed as a case of acute gastritis. She says she has a history of reflux she is discharged home with a prescription for omeprazole and sucralfate. She is to follow-up with her primary care provider Medical Records: Attestation: I reviewed the patient's medical records. Lab Data: Attestation: I reviewed the patient's lab results. Labs: Lab Results 05/31/20 05/31/20 05/31/20 Range/Units 11:55 11:55 11:55 WBC 7.5 (4.0-10.0) 10^3/ uL RBC 4.49 (4.1-5.3) 10^6/u L Hgb 12.8 (11.5-15.3) g/dL Hct 39.5 (37.0-47.0) % MCV 88.0 (81-99) fL MCH 28.5 (28.0-34.0) pg MCHC 32.4 (30.0-36.0) g/dL RDW 12.6 (12.1-15.1) % Plt Count 324 (130-400) 10^3/c mm MPV 10.1 (7.4-10.4) fL Neut % (Auto) 65.8 % Lymph % (Auto) 20.2 % [place] % (Auto) 7.6 % Eos % (Auto) 5.5 % Baso % (Auto) 0.5 % Neut # (Auto) 4.93 (1.8-7.7) 10^3/u L Lymph # (Auto) 1.5 (0.8-4.8) 10^3/u L [place] # (Auto) 0.6 (0.2-0.9) 10^3/u L Eos # (Auto) 0.4 (0.0-0.8) 10^3/u L Baso # (Auto) 0.0 (0.0-0.1) 10^3/u L Nucleated RBC % (a uto) 0 % Nucleated RBCs # 0.0 /100WBC Sodium 137 (136-145) mmol/L Potassium 4.2 (3.5-5.1) mmol/L Chloride 104 (98-107) mmol/L Carbon Dioxide 25 (22-29) mmol/L Anion Gap 12.2 (5-19) BUN 8 (6-20) mg/dL Creatinine 0.8 (0.5-0.9) mg/dL GFR Calculation 80.3 L (90-130) mL/min Glucose 90 (65-115) mg/dL Calculated Osmolal ity 282 L (285-295) mOsm/k g Calcium 9.4 (8.5-10.5) mg/dL Total Bilirubin 0.2 (0.15-1.2) mg/dL AST 20 (0-32) U/L ALT 18 (0-33) U/L Alkaline Phosphata se 81 (35-105) IU/L C-Reactive Protein 3.5 (0.0-4.9) mg/L Total Protein 7.3 (6.6-8.7) g/dL Albumin 4.1 (3.5-5.2) g/dL Globulin 3.2 (1.3-4.6) g/dL Lipase 41 (13-60) U/L HCG, Qual Negative (Negative) Urine Color (Yellow) Urine Appearance (CLEAR) Urine pH (5-7) Ur Specific Gravit y (1.005-1.030) Urine Protein (Negative) Urine Glucose (UA) (Normal) Urine Ketones (Negative) Urine Blood (Negative) Urine Nitrate (Negative) Urine Bilirubin (Negative) Urine Urobilinogen (Negative) mg/dL Ur Leukocyte Cortney ase (Negative) 05/31/20 Range/Units 12:05 WBC (4.0-10.0) 10^3/ uL RBC (4.1-5.3) 10^6/u L Hgb (11.5-15.3) g/dL Hct (37.0-47.0) % MCV (81-99) fL MCH (28.0-34.0) pg MCHC (30.0-36.0) g/dL RDW (12.1-15.1) % Plt Count (130-400) 10^3/c mm MPV (7.4-10.4) fL Neut % (Auto) % Lymph % (Auto) % [place] % (Auto) % Eos % (Auto) % Baso % (Auto) % Neut # (Auto) (1.8-7.7) 10^3/u L Lymph # (Auto) (0.8-4.8) 10^3/u L [place] # (Auto) (0.2-0.9) 10^3/u L Eos # (Auto) (0.0-0.8) 10^3/u L Baso # (Auto) (0.0-0.1) 10^3/u L Nucleated RBC % (a uto) % Nucleated RBCs # /100WBC Sodium (136-145) mmol/L Potassium (3.5-5.1) mmol/L Chloride (98-107) mmol/L Carbon Dioxide (22-29) mmol/L Anion Gap (5-19) BUN (6-20) mg/dL Creatinine (0.5-0.9) mg/dL GFR Calculation (90-130) mL/min Glucose (65-115) mg/dL Calculated Osmolal ity (285-295) mOsm/k g Calcium (8.5-10.5) mg/dL Total Bilirubin (0.15-1.2) mg/dL AST (0-32) U/L ALT (0-33) U/L Alkaline Phosphata se (35-105) IU/L C-Reactive Protein (0.0-4.9) mg/L Total Protein (6.6-8.7) g/dL Albumin (3.5-5.2) g/dL Globulin (1.3-4.6) g/dL Lipase (13-60) U/L HCG, Qual (Negative) Urine Color Yellow (Yellow) Urine Appearance Clear (CLEAR) Urine pH 5 (5-7) Ur Specific Gravit y 1.025 (1.005-1.030) Urine Protein Neg (Negative) Urine Glucose (UA) Norm (Normal) Urine Ketones Negative (Negative) Urine Blood Neg (Negative) Urine Nitrate Negative (Negative) Urine Bilirubin Neg (Negative) Urine Urobilinogen Norm (Negative) mg/dL Ur Leukocyte [place] ase Negative (Negative) Discharge Plan Discharge Patient Disposition: Home Clinical Impression: Gastritis Qualifiers: Gastritis type: unspecified gastritis Chronicity: acute Gastritis bleeding: without bleeding Qualified Code(s): K29.00 - Acute gastritis without bleeding Condition: Stable Prescriptions: New sucralfate 1 gram tablet 1 g PO TID 14 Days Qty: 42 RF: 0 omeprazole 40 mg capsule,delayed release(DR/EC) 40 mg PO DAILY 14 Days Qty: 14 RF: 0 Continued Breo Ellipta 100-25 mcg/dose blister with device 1 inh INHALATION Q24H RF: 0 albuterol sulfate [Proventil HFA] 90 mcg/actuation HFA aerosol inhaler 2 puff INHALATION Q4H PRN (Reason: Shortness Of Breath) RF: 0 fexofenadine 180 mg tablet 180 mg PO DAILY RF: 0 montelukast 10 mg tablet 10 mg PO DAILY RF: 0 fluticasone propionate [Allergy Relief (fluticasone)] 50 mcg/actuation spray,suspension 1 spray INTRANASAL DAILY PRN (Reason: Nasal Congestion) RF: 0 acetaminophen [Tylenol Arthritis Pain] 650 mg Tablet Extended Release 1,300 mg PO DAILY PRN (Reason: Pain) RF: 0 albuterol sulfate 2.5 mg /3 mL (0.083 %) Solution For Nebulization 2.5 mg inhalation Q6H PRN (Reason: Shortness Of Breath) RF: 0 Discharge Orders: Discharge ED (Routine); Ordered 05/31/20 Ordered By: Demar Wells Referrals: Marcia Thomas FNP [Primary Care Provider] - 1-3 days Discharge Diet: As Directed Discharge Activity: Increase activity as tolerated Patient Instructions: Gastritis (ED), Diet for Ulcers and Gastritis (ED) Activity Restrictions/Additional Instructions: Return for any new or worsening symptoms. Follow-up with your primary care provider within 3 days. Take the medications as prescribed. Coding Level of Care Code ED Front Maker Lockstitch for Chg Fwd Exam Comprehensive
[2020-05-31] MEDS: ondansetron 2 mg/ML SDV 2 mL 4 MG IVP (12:05)
[2020-05-31] MEDS: fentaNYL 50 mcg/mL INJ 2mL IVP (12:06)
[2020-05-31 12:08] VITALS: BP 121/64; PULSE 72; RESP 17; O2SAT 95
[2020-05-31 12:08] LABS: Basophils % 0.5 %; Eosinophils # 0.4 10^3/uL (0.0-0.8); Eosinophils % 5.5 %; Hematocrit 39.5 % (37.0-47.0); Hemoglobin 12.8 g/dL (11.5-15.3); Lymphocytes # 1.5 10^3/uL (0.8-4.8); Lymphocytes % 20.2 %; Mean Corpuscular HGB Conc 32.4 g/dL (30.0-36.0); Mean Corpuscular Hemoglobin 28.5 pg (28.0-34.0); Mean Platelet Volume 10.1 fL (7.4-10.4); Monocytes # 0.6 10^3/uL (0.2-0.9); Monocytes % 7.6 %; Neutrophils # 4.93 10^3/uL (1.8-7.7); Neutrophils % 65.8 %; Nucleated Red Blood Cells % 0 %; Platelet Count 324 10^3/cmm (130-400); Red Blood Count 4.49 10^6/uL (4.1-5.3); Red Cell Distribution Width 12.6 % (12.1-15.1); White Blood Count 7.5 10^3/uL (4.0-10.0)
[2020-05-31 12:16] LABS: Add Urine Microscopic? NO
[2020-05-31 12:24] LABS: Bilirubin Urine Neg (Negative); Blood Urine Neg (Negative); Glucose Urine UA Norm (Normal); Ketones Urine Negative (Negative); Leukocyte Esterase Urine Negative (Negative); Nitrate Urine Negative (Negative); Protein Urine Neg (Negative); Specific Gravity, Urine 1.025 (1.005-1.030); Urine Appearance Clear (CLEAR); Urine Color Yellow (Yellow); Urobilinogen Urine Norm (Negative); pH Urine 5 (5-7)
[2020-05-31 12:24] LABS: HCG, Serum Qual Negative (Negative)
[2020-05-31 12:27] LABS: Alanine Aminotransferase 18 U/L (0-33); Albumin Level 4.1 g/dL (3.5-5.2); Alkaline Phosphatase 81 IU/L (35-105); Anion Gap 12.2 (5-19); Aspartate Amino Transferase 20 U/L (0-32); Blood Urea Nitrogen 8 mg/dL (6-20); C Reactive Protein 3.5 mg/L (0.0-4.9); Calcium 9.4 mg/dL (8.5-10.5); Carbon Dioxide 25 mmol/L (22-29); Chloride 104 mmol/L (98-107); Creatinine Clr Calc Pharmacy 117.7916; Globulin 3.2 g/dL (1.3-4.6); Glomerular Filtration Rate 80.3 mL/min (90-130); Glucose 90 mg/dL (65-115); Lipase 41 U/L (13-60); Osmolality Calculated 282 mOsm/kg (285-295); Potassium 4.2 mmol/L (3.5-5.1); Sodium 137 mmol/L (136-145); Total Bilirubin 0.2 mg/dL (0.15-1.2); Total Protein 7.3 g/dL (6.6-8.7)
[2020-05-31 13:19] VITALS: BP 102/71; PULSE 75; RESP 16; O2SAT 96
[2020-05-31 13:53] VITALS: BP 102/71; PULSE 62; RESP 17; O2SAT 98
== END 2020-05-31 13:54 | disposition home or self-care (01) ==
PROVIDERS: Emergency Provider Family Medicine; PCP Nurse Practitioner Family
DX: K29.00 Acute gastritis without bleeding (principal)
CPT/HCPCS: 80053; 81003; 83690; 84703; 85025; 86140; 96374; 96375; 99283; J2405; J3010

== ENCOUNTER 2020-06-16 10:26 | Emergency (ER) | payer SELFPAY ==
[2020-06-16 10:33] VITALS: BP 116/74; PULSE 88; RESP 16; TEMP 36.8; O2SAT 97; BMI 33.0
--- NOTE | 2020-06-16 11:00 | W.ED.ABDPA2 ---
HPI - Abdominal Pain General: Chief Complaint: Abdominal Pain Stated Complaint: ABD PAIN, NAUSEA Time Seen by Provider: 06/16/20 10:59 Source: patient Mode of arrival: ambulatory Limitations: no limitations History of Present Illness: HPI narrative: 39-year-old female with persistent epigastric pain, nausea, vomiting for several weeks. She was seen here on 05/31/2020 diagnosed with gastritis. She ran out of the omeprazole, and is taking the sucralfate sporadically, followed up with her PCP who suggested keeping a strict food journal, which she has been doing. Her symptoms are worst when she has an empty stomach, slightly better when she eats, but then she also gets nauseous. No hematemesis. No fever, diarrhea, or sick contacts. No history of bariatric surgery. Associated Symptoms: Reports heartburn and nausea; Denies chills, dysuria, fever(s) and hematemesis Related Data: Date of Last Menstrual Period: 05/26/20 Review of Systems General: Reports: 10 or more systems reviewed and unremarkable except in HPI and below Const: Reports: change in appetite; Denies: fever(s), chills, body aches or diaphoresis Eyes: Denies: change in vision, blurry vision or blind spots ENMT: Denies: throat pain or odynophagia Card: Denies: chest pain, palpitations or irregular heart rhythm Resp: Denies: dyspnea, productive cough or wheezing GI: Reports: abdominal pain, nausea and heartburn; Denies: hematemesis or dysphagia : Denies: flank pain, difficulty voiding, dysuria or urinary frequency Musc: Denies: neck pain, back pain, extremity pain or extremity swelling Skin/Breast: Denies: rash, pruritus or erythema Neuro: Denies: headache(s), numbness in extremities or weakness in extremities PFSH ED PFSH: Social History Smoking and tobacco status: never smoked Alcohol intake: never Female Reproductive History: Date of last menstrual period: 05/26/20 Physical Exam Const: COMMON NORMALS: patient oriented x3 GENERAL APPEARANCE: cooperative; not in distress, not ill appearing, not frail appearing and not diaphoretic NUTRITIONAL APPEARANCE: overweight ORIENTATION/CONSCIOUSNESS: Yes awake, Yes oriented to person, Yes oriented to place and Yes oriented to time HENMT: COMMON NORMALS: normocephalic and atraumatic HEAD & SCALP: normocephalic and atraumatic FACE & SINUS: normal facial exam Eye: COMMON NORMALS: Equal, round and reactive pupils present, EOMs intact bilaterally, conjunctivae normal and no scleral icterus CONJUNCTIVA: Yes conjunctivae normal PUPIL: Yes Equal, round and reactive pupils present Neck/C-Spine: COMMON NORMALS: full ROM, no lymphadenopathy and supple Resp: COMMON NORMALS: normal respiratory effort and No use of accessory muscles EFFORT & INSPECTION: Yes able to speak in complete sentences Cardio: COMMON NORMALS: regular rate, regular rhythm, S1 normal heart sound present and S2 normal heart sound present RATE: regular rate RHYTHM: regular rhythm HEART SOUNDS: S1 normal heart sound present and S2 normal heart sound present GI: COMMON NORMALS: Soft to palpation PALPATION: Yes Soft to palpation, No Firmness to palpation present (GI), Yes Tenderness to palpation present (GI) Details: RUQ and other (Epigastrium), No Guarding due to palpation present (GI), No Rigid due to palpation, No Hepatosplenomegaly present, No Splenomegaly present, No Ascites present and No Rebound tenderness present Extremity: COMMON NORMALS: normal to inspection, full ROM, capillary refill normal and no clubbing, cyanosis or edema Neuro: COMMON NORMALS: patient oriented x3 and moves all extremities SENSORIUM/ORIENTATION: Yes oriented to person, Yes oriented to place and Yes oriented to time Skin: COMMON NORMALS: no rashes or lesions noted, no wounds, turgor normal, no jaundice, no petechiae and no mottling GENERAL SKIN EXAM: no rashes or lesions noted and turgor normal Course Vital Signs: Vital signs: Vital Signs Temperature 98.2 F 06/16/20 10:33 Pulse Rate 70 06/16/20 12:46 Respiratory Rate 16 06/16/20 12:46 Blood Pressure 113/68 06/16/20 12:46 Pulse Oximetry 99 06/16/20 12:46 MDM - Abdominal Pain MDM Narrative: Medical decision making narrative: 39-year-old female with chronic epigastric pain, nausea, occasional vomiting. Had some improvement with the omeprazole, but ran out. Taking the sucralfate sporadically. She does not appear ill, but she does have tenderness and a positive Ryan sign. Lab work is all normal. Ultrasound does not show any cholelithiasis or signs of acute cholecystitis. She had some improvement of her symptoms with GI cocktail, Zofran,. Also treated with IV fluid. Reviewing her food journal, it is evident that the majority of her diet consists of fast food, fried foods, and takeout. 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 She also frequently drinks carbonated beverages to help with nausea. I am recommending that she switch to Protonix, 40 mg twice daily for 30 days, Zofran and Levsin as needed and try her best to cut out problematic foods including spicy, fried, acidic, high-fat items. Also reminded her not to take any [id number] NSAIDs, and avoid alcohol altogether. Differential Diagnosis: Differential diagnosis abdominal pain: Likely abdominal pain, gastroenteritis and pancreatitis Medical Records: Attestation: I reviewed the patient's medical records. Lab Data: Attestation: I reviewed the patient's lab results. Labs: Lab Results 06/16/20 06/16/20 06/16/20 Range/Units 11:40 11:46 11:46 WBC 7.1 (4.0-10.0) 10^3/ uL RBC 4.59 (4.1-5.3) 10^6/u L Hgb 13.1 (11.5-15.3) g/dL Hct 40.8 (37.0-47.0) % MCV 88.9 (81-99) fL MCH 28.5 (28.0-34.0) pg MCHC 32.1 (30.0-36.0) g/dL RDW 12.8 (12.1-15.1) % Plt Count 289 (130-400) 10^3/c mm MPV 10.6 H (7.4-10.4) fL Neut % (Auto) 65.7 % Lymph % (Auto) 18.5 % [place] % (Auto) 9.2 % Eos % (Auto) 5.7 % Baso % (Auto) 0.6 % Neut # (Auto) 4.65 (1.8-7.7) 10^3/u L Lymph # (Auto) 1.3 (0.8-4.8) 10^3/u L [place] # (Auto) 0.7 (0.2-0.9) 10^3/u L Eos # (Auto) 0.4 (0.0-0.8) 10^3/u L Baso # (Auto) 0.0 (0.0-0.1) 10^3/u L Nucleated RBC % (a uto) 0 % Nucleated RBCs # 0.0 /100WBC Sodium 139 (136-145) mmol/L Potassium 4.1 (3.5-5.1) mmol/L Chloride 106 (98-107) mmol/L Carbon Dioxide 24 (22-29) mmol/L Anion Gap 13.1 (5-19) BUN 12 (6-20) mg/dL Creatinine 0.7 (0.5-0.9) mg/dL GFR Calculation 93.6 (90-130) mL/min Glucose 92 (65-115) mg/dL Calculated Osmolal ity 287 (285-295) mOsm/k g Calcium 9.0 (8.5-10.5) mg/dL Total Bilirubin 0.4 (0.15-1.2) mg/dL AST 18 (0-32) U/L ALT 13 (0-33) U/L Alkaline Phosphata se 69 (35-105) IU/L Total Protein 7.1 (6.6-8.7) g/dL Albumin 4.0 (3.5-5.2) g/dL Globulin 3.1 (1.3-4.6) g/dL Lipase 39 (13-60) U/L Urine Color Yellow (Yellow) Urine Appearance Clear (CLEAR) Urine pH 5 (5-7) Ur Specific Gravit y 1.020 (1.005-1.030) Urine Protein Neg (Negative) Urine Glucose (UA) Norm (Normal) Urine Ketones Negative (Negative) Urine Blood Neg (Negative) Urine Nitrate Negative (Negative) Urine Bilirubin Neg (Negative) Urine Urobilinogen Norm (Negative) mg/dL Ur Leukocyte Cort[place] ase Negative (Negative) Discharge Plan Discharge Patient Disposition: Home Clinical Impression: Chronic epigastric pain, Gastritis and duodenitis Condition: Stable Prescriptions: New pantoprazole 40 mg tablet,delayed release (DR/EC) 40 mg PO BID 30 Days Qty: 60 RF: 0 ondansetron 8 mg tablet,disintegrating 8 mg PO Q8H PRN (Reason: nausea and vomiting) 3 Days Qty: 30 RF: 0 Levsin/SL 0.125 mg tablet, sublingual 0.125 mg sublingual Q6H PRN (Reason: abdominal caba) Qty: 30 RF: 0 No Action Breo Ellipta 100-25 mcg/dose blister with device 1 inh INHALATION Q24H RF: 0 albuterol sulfate [Proventil HFA] 90 mcg/actuation HFA aerosol inhaler 2 puff INHALATION Q4H PRN (Reason: Shortness Of Breath) RF: 0 fexofenadine 180 mg tablet 180 mg PO DAILY@0800 RF: 0 montelukast 10 mg tablet 10 mg PO DAILY@0800 RF: 0 fluticasone propionate [Allergy Relief (fluticasone)] 50 mcg/actuation spray,suspension 1 spray INTRANASAL DAILY PRN (Reason: Nasal Congestion) RF: 0 acetaminophen [Tylenol Arthritis Pain] 650 mg Tablet Extended Release 1,300 mg PO DAILY PRN (Reason: Pain) RF: 0 Prilosec OTC 20 mg Tablet,Delayed Release (Dr/Ec) 20 mg PO DAILY@0800 RF: 0 Rolaids Extra Strength See Rx Instructions .ROUTE .COMPLEX RF: 0 albuterol sulfate 2.5 mg /3 mL (0.083 %) Solution For Nebulization 2.5 mg inhalation Q6H PRN (Reason: Shortness Of Breath) RF: 0 Discharge Orders: Discharge ED (Routine); Ordered 06/16/20 Ordered By: Vero Link Referrals: Marcia Thomas FNP [Primary Care Provider] - Discharge Diet: Low Fat Discharge Activity: Increase activity as tolerated Patient Instructions: Diet for Ulcers and Gastritis (ED) Activity Restrictions/Additional Instructions: Make sure to take pantoprazole twice daily for the next 30 days. Try to avoid fried/high fat, spicy, carbonated, or acidic foods or drinks. Follow-up with your primary care doctor in the next 2 to 3 days. Return immediately to the ER if develop fever, if you cannot keep down liquids, or if your pain worsens. 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
[2020-06-16 11:08] VITALS: PULSE 79; RESP 18; O2SAT 97
--- NOTE | 2020-06-16 11:27 | USR_ITS ---
PROCEDURE INFORMATION: Exam: US Abdomen, Limited; Right Upper Quadrant Exam date and time: 06/16/2020 12:13 PM Age: 39 years old Clinical indication: Abdominal pain; Epigastric; Additional info: Ruq/epigastric pain, n/v TECHNIQUE: Imaging protocol: US abdomen. Real time ultrasound with image documentation. Limited exam focused on the right upper quadrant. COMPARISON: CT abdomen pelvis w con* [id number] 01/01/2019 12:44 PM FINDINGS: Liver: The liver measures 13.0 cm in the midclavicular plane. Unremarkable. Gallbladder: The sonographic Ryan sign is positive (tenderness). The gallbladder wall measures 1.8 mm. No gallstones. Common bile duct: The common bile duct measures 2.0 mm. No ductal calculi as visualized. Pancreas: Obscured by bowel gas. Right kidney: The right kidney measures 10.2 s 4.0 x 4.2 cm. 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 The renal cortex measures 1.0 cm. A brief color Doppler examination of the right kidney was performed showing normal color shifts. Aorta: The proximal abdominal aorta measures 1.7 cm. The mid abdominal aorta measures 1.4 cm. The distal infrarenal abdominal aorta measures 1.5 cm. No aneurysm. Portal venous: A brief color and pulsed Doppler examination of the portal vein was performed showing normal hepatopedal flow. Inferior vena cava: Unremarkable IVC, normal color Doppler shifts. US/US abdomen limited [id number] IMPRESSION: 1. Limitations as above. 2. Positive sonographic Ryan sign. 3. Otherwise, no acute right upper quadrant abnormality identified.
[2020-06-16] MEDS: lactated ringers 1,000 ML 999 ML IV (11:50)
[2020-06-16 11:52] LABS: Basophils % 0.6 %; Eosinophils # 0.4 10^3/uL (0.0-0.8); Eosinophils % 5.7 %; Hematocrit 40.8 % (37.0-47.0); Hemoglobin 13.1 g/dL (11.5-15.3); Lymphocytes # 1.3 10^3/uL (0.8-4.8); Lymphocytes % 18.5 %; Mean Corpuscular HGB Conc 32.1 g/dL (30.0-36.0); Mean Corpuscular Hemoglobin 28.5 pg (28.0-34.0); Mean Corpuscular Volume 88.9 fL (81-99); Mean Platelet Volume 10.6 fL (7.4-10.4); Monocytes # 0.7 10^3/uL (0.2-0.9); Monocytes % 9.2 %; Neutrophils # 4.65 10^3/uL (1.8-7.7); Neutrophils % 65.7 %; Nucleated Red Blood Cells % 0 %; Platelet Count 289 10^3/cmm (130-400); Red Blood Count 4.59 10^6/uL (4.1-5.3); Red Cell Distribution Width 12.8 % (12.1-15.1); White Blood Count 7.1 10^3/uL (4.0-10.0)
[2020-06-16] MEDS: ondansetron 2 mg/ML SDV 2 mL 4 MG IVP (11:54)
[2020-06-16 11:56] LABS: Add Urine Microscopic? NO
[2020-06-16 12:06] LABS: Bilirubin Urine Neg (Negative); Blood Urine Neg (Negative); Glucose Urine UA Norm (Normal); Ketones Urine Negative (Negative); Leukocyte Esterase Urine Negative (Negative); Nitrate Urine Negative (Negative); Protein Urine Neg (Negative); Urine Appearance Clear (CLEAR); Urine Color Yellow (Yellow); Urobilinogen Urine Norm (Negative); pH Urine 5 (5-7)
[2020-06-16 12:14] LABS: Alanine Aminotransferase 13 U/L (0-33); Alkaline Phosphatase 69 IU/L (35-105); Aspartate Amino Transferase 18 U/L (0-32); Blood Urea Nitrogen 12 mg/dL (6-20); Carbon Dioxide 24 mmol/L (22-29); Chloride 106 mmol/L (98-107); Globulin 3.1 g/dL (1.3-4.6); Glomerular Filtration Rate 93.6 mL/min (90-130); Glucose 92 mg/dL (65-115); Lipase 39 U/L (13-60); Osmolality Calculated 287 mOsm/kg (285-295); Sodium 139 mmol/L (136-145); Total Bilirubin 0.4 mg/dL (0.15-1.2); Total Protein 7.1 g/dL (6.6-8.7)
[2020-06-16 12:15] VITALS: BP 118/77; PULSE 69; RESP 16; O2SAT 96
--- NOTE | 2020-06-16 12:16 | PC.NURSE ---
patient stated felt better, denied any nausea at this time.
[2020-06-16] MEDS: pantoprazole DR 40 mg Tablet PO (12:20)
[2020-06-16] MEDS: lidocaine 2% viscous 15 ML, aluminum-mag hydrox-simethicon 30 ML, sucralfate oral liq 1 GM PO (12:21)
[2020-06-16 12:39] LABS: Anion Gap 13.1 (5-19); Potassium 4.1 mmol/L (3.5-5.1)
[2020-06-16 12:46] VITALS: BP 113/68; PULSE 70; RESP 16; O2SAT 99
== END 2020-06-16 12:48 | disposition home or self-care (01) ==
PROVIDERS: Emergency Provider Family Medicine; PCP Nurse Practitioner Family
DX: K29.70 Gastritis, unspecified, without bleeding (principal); K29.80 Duodenitis without bleeding; G89.29 Other chronic pain; R10.13 Epigastric pain
CPT/HCPCS: 76705; 80053; 81003; 83690; 85025; 96361; 96374; 99284; J2405

== ENCOUNTER 2020-06-22 11:53 | Emergency (ER) | payer SELFPAY ==
[2020-06-22 12:32] VITALS: BP 116/76; PULSE 69; RESP 20; TEMP 36.3; O2SAT 98; BMI 32.6
--- NOTE | 2020-06-22 13:19 | CTR_ITS ---
PROCEDURE INFORMATION: Exam: CT Abdomen And Pelvis With Contrast Exam date and time: 06/22/2020 2:45 PM Age: 39 years old Clinical indication: Abdominal pain; Localized; Patient HX: C/O lower abd pain w nausea TECHNIQUE: Imaging protocol: Computed tomography of the abdomen and pelvis with contrast. Axial, coronal and sagittal reformatted images were created and reviewed. Radiation optimization: All CT scans at this facility use at least one of these dose optimization techniques: automated exposure control; mA and/or kV adjustment per patient size (includes targeted exams where dose is matched to clinical indication); or iterative reconstruction. Contrast material: OMNI 300; Contrast volume: 95 ml; Contrast route: INTRAVENOUS (IV); COMPARISON: CT abdomen pelvis w con* [id number] 01/01/2019 12:44 PM RADIATION DOSE METRICS: Total DLP (mGy-cm): 1857.96 FINDINGS: Lungs: Mild linear stranding and groundglass at the lung bases, likely due to atelectasis. Liver: Unremarkable. Gallbladder and bile ducts: No radiodense gallstones. No biliary ductal dilatation. Pancreas: Unremarkable. Spleen: Unremarkable. Adrenal glands: Normal. No mass. Kidneys and ureters: Indeterminate 1 cm low-density left renal lesion, similar to prior (no follow-up is indicated based on the imaging appearance). No radiodense calculi. No hydronephrosis. Stomach and bowel: Moderate amount of retained stool in the colon. Suggestion of mild colonic wall thickening, predominantly is verse colon. No obstruction. No pneumatosis. Appendix: Normal. Intraperitoneal space: No free fluid. No organized fluid collection. No free air. Vasculature: Unremarkable. No aneurysm. Lymph nodes: No pathologically enlarged lymph nodes. Urinary bladder: Unremarkable as visualized. Reproductive: Unremarkable. Bones/joints: No acute osseous abnormality. Degenerative changes. Soft tissues: Unremarkable. CT/CT abdomen pelvis w con* [id number] IMPRESSION: 1. Findings suggestive of mild nonspecific colitis, as described above. 2. Additional findings, as above. Radiation Dose CTDIVOL = (mGy): DLP = 1857.96 (mGy-cm)
[2020-06-22] MEDS: ondansetron 2 mg/ML SDV 2 mL 4 MG IVP (13:20)
--- NOTE | 2020-06-22 13:34 | W.ED.ABDPA2 ---
HPI - Abdominal Pain General: Chief Complaint: Abdominal Pain Stated Complaint: SEVERE AB PAIN Time Seen by Provider: 06/22/20 13:17 History of Present Illness: HPI narrative: 39-year-old female comes in complaining of abdominal pain mostly lower abdominal pain slightly more the right than the left she has been seen 3 times for this on the and the here in the emergency room on the in the ER. She tried various antiemetics proton pump inhibitors and H2 blockers with moderate relief from keeping a food diary previous ultrasound the gallbladder was negative. No previous abdominal surgeries. Said nausea and vomiting with nausea not having any stools at all the last 3 days. She is not had any fever all appetite has been decreased eating seems to make it worse. She has not noticed any particular trigger foods. She has been keeping a food diary in association with this. MD elicited complaint: abdominal pain Pertinent past history: none Onset (ago): week(s) Pain Consistency: intermittent Location: RLQ and Suprapubic Severity: severe Quality: cramping and stabbing Radiation: none Exacerbating factors: eating and movement Relieving factors: rest Associated Symptoms: Reports anorexia, change in bowel habits, chills, constipation, GI cramping and dyspepsia; Denies belching, bloating, change in stool character, coffee ground emesis, diarrhea, dysuria, excessive flatus, fever(s), heartburn, hematochezia, hematuria, hematemesis, fecal incontinence, loose stools, melena, nausea, poor appetite, syncope and vomiting Related Data: Date of Last Menstrual Period: 05/26/20 Review of Systems Const: Reports: chills; Denies: fever(s) ENMT: Denies: throat pain, ear or mastoid pain, nasal discharge or nasal congestion Card: Denies: syncope Resp: Denies: dyspnea, productive cough or non-productive cough GI: Reports: constipation, GI cramping and change in bowel habits; Denies: nausea, vomiting, hematemesis, coffee ground emesis, heartburn, diarrhea, bloating, belching, excessive flatus, fecal incontinence, change in stool character, hematochezia or melena : Denies: dysuria or hematuria Skin/Breast: Denies: rash or pruritus PFSH ED PFSH: Social History (Reviewed 06/22/20 @ 13:36 by JAK Milton Smoking and tobacco status: never smoked Alcohol intake: never Female Reproductive History: Date of last menstrual period: 05/26/20 Physical Exam Const: COMMON NORMALS: no acute distress GENERAL APPEARANCE: cooperative and comfortable ORIENTATION/CONSCIOUSNESS: Yes awake, Yes oriented to person, Yes oriented to place and Yes oriented to time HENMT: COMMON NORMALS: normocephalic, atraumatic and hearing grossly normal bilaterally HEAD & SCALP: normocephalic and atraumatic Neck/C-Spine: COMMON NORMALS: no JVD Resp: COMMON NORMALS: normal respiratory effort, No retractions, No use of accessory muscles and clear to auscultation bilaterally AUSCULTATION: clear to auscultation bilaterally Cardio: COMMON NORMALS: no JVD, regular rate, regular rhythm and No murmurs present (Cardio) RATE: regular rate RHYTHM: regular rhythm GI: COMMON NORMALS: Soft to palpation and No hepatosplenomegaly present AUSCULTATION: Yes normoactive bowel sounds PALPATION: Yes Soft to palpation, No Tenderness to palpation present (GI), No Guarding due to palpation present (GI) and Yes No hepatosplenomegaly present Extremity: COMMON NORMALS: normal to inspection, capillary refill normal, no clubbing, cyanosis or edema, no calf tenderness and no pedal edema Neuro: SENSORIUM/ORIENTATION: Yes oriented to person, Yes oriented to place and Yes oriented to time Skin: COMMON NORMALS: no rashes or lesions noted GENERAL SKIN EXAM: no rashes or lesions noted Course Vital Signs: Vital signs: Vital Signs Temperature 98.2 F 06/22/20 17:08 Pulse Rate 79 06/22/20 17:08 Respiratory Rate 20 H 06/22/20 17:08 Blood Pressure 98/49 06/22/20 17:08 Pulse Oximetry 100 06/22/20 17:08 MDM - Abdominal Pain MDM Narrative: Medical decision making narrative: Patient is getting intermittent wavelike spasmodic pain. She has a large amount of stool in her colon. Radiology reports states there may be a mild colitis. Clinically that does not appear to be the case her abdominal exam is actually fairly benign with palpation she not having any loose stools. At this point I think she can be treated for the constipation Margarita Parekh should have a colonoscopy at some point. We will have her off work clear liquid diet for the next 2 to 3 days mag citrate repeat every 6 hours 150 mL until desired results achieved. Lab Data: Labs: Lab Results 06/22/20 06/22/20 06/22/20 Range/Units 14:04 14:12 14:12 WBC 15.0 H (4.0-10.0) 10^3/ uL RBC 4.39 (4.1-5.3) 10^6/u L Hgb 12.7 (11.5-15.3) g/dL Hct 39.5 (37.0-47.0) % MCV 90.0 (81-99) fL MCH 28.9 (28.0-34.0) pg MCHC 32.2 (30.0-36.0) g/dL RDW 12.4 (12.1-15.1) % Plt Count 325 (130-400) 10^3/c mm MPV 10.3 (7.4-10.4) fL Neut % (Auto) 84.1 % Lymph % (Auto) 8.7 % Winkler % (Auto) 5.4 % Eos % (Auto) 0.8 % Baso % (Auto) 0.4 % Neut # (Auto) 12.64 H (1.8-7.7) 10^3/u L Lymph # (Auto) 1.3 (0.8-4.8) 10^3/u L Winkler # (Auto) 0.8 (0.2-0.9) 10^3/u L Eos # (Auto) 0.1 (0.0-0.8) 10^3/u L Baso # (Auto) 0.1 (0.0-0.1) 10^3/u L Nucleated RBC % (a uto) 0 % Nucleated RBCs # 0.0 /100WBC Sodium 137 (136-145) mmol/L Potassium 3.9 (3.5-5.1) mmol/L Chloride 104 (98-107) mmol/L Carbon Dioxide 23 (22-29) mmol/L Anion Gap 13.9 (5-19) BUN 13 (6-20) mg/dL Creatinine 0.8 (0.5-0.9) mg/dL GFR Calculation 80.3 L (90-130) mL/min Glucose 124 H (65-115) mg/dL Calculated Osmolal ity 286 (285-295) mOsm/k g Calcium 9.0 (8.5-10.5) mg/dL Total Bilirubin 0.5 (0.15-1.2) mg/dL AST 16 (0-32) U/L ALT 14 (0-33) U/L Alkaline Phosphata se 72 (35-105) IU/L Creatine Kinase 56 (26-192) U/L Total Protein 7.1 (6.6-8.7) g/dL Albumin 4.1 (3.5-5.2) g/dL Globulin 3.0 (1.3-4.6) g/dL Lipase 26 (13-60) U/L HCG, Qual (Negative) Urine Color Dark yellow (Yellow) Urine Appearance Cloudy (CLEAR) Urine pH 5 (5-7) Ur Specific Gravit y 1.025 (1.005-1.030) Urine Protein Neg (Negative) Urine Glucose (UA) Norm (Normal) Urine Ketones 1+ H (Negative) Urine Blood 2+ H (Negative) Urine Nitrate Negative (Negative) Urine Bilirubin Neg (Negative) Urine Urobilinogen 1 H (Negative) mg/dL Ur Leukocyte Cortney ase 1+ H (Negative) Urine RBC 5-10 H (0-2) /hpf Urine WBC 5-10 H (0-5) /hpf Ur Squamous Epith Cells 10-15 H (0-5) /hpf Amorphous Sediment Not Reportable Urine Bacteria 2+ H (NONE) /hpf Urine Mucus 2+ /hpf 03//21 Range/Units 14:12 WBC (4.0-10.0) 10^3/ uL RBC (4.1-5.3) 10^6/u L Hgb (11.5-15.3) g/dL Hct (37.0-47.0) % MCV (81-99) fL MCH (28.0-34.0) pg MCHC (30.0-36.0) g/dL RDW (12.1-15.1) % Plt Count (130-400) 10^3/c mm MPV (7.4-10.4) fL Neut % (Auto) % Lymph % (Auto) % Winkler % (Auto) % Eos % (Auto) % Baso % (Auto) % Neut # (Auto) (1.8-7.7) 10^3/u L Lymph # (Auto) (0.8-4.8) 10^3/u L Winkler # (Auto) (0.2-0.9) 10^3/u L Eos # (Auto) (0.0-0.8) 10^3/u L Baso # (Auto) (0.0-0.1) 10^3/u L Nucleated RBC % (a uto) % Nucleated RBCs # /100WBC Sodium (136-145) mmol/L Potassium (3.5-5.1) mmol/L Chloride (98-107) mmol/L Carbon Dioxide (22-29) mmol/L Anion Gap (5-19) BUN (6-20) mg/dL Creatinine (0.5-0.9) mg/dL GFR Calculation (90-130) mL/min Glucose (65-115) mg/dL Calculated Osmolal ity (285-295) mOsm/k g Calcium (8.5-10.5) mg/dL Total Bilirubin (0.15-1.2) mg/dL AST (0-32) U/L ALT (0-33) U/L Alkaline Phosphata se (35-105) IU/L Creatine Kinase (26-192) U/L Total Protein (6.6-8.7) g/dL Albumin (3.5-5.2) g/dL Globulin (1.3-4.6) g/dL Lipase (13-60) U/L HCG, Qual Negative (Negative) Urine Color (Yellow) Urine Appearance (CLEAR) Urine pH (5-7) Ur Specific Gravit y (1.005-1.030) Urine Protein (Negative) Urine Glucose (UA) (Normal) Urine Ketones (Negative) Urine Blood (Negative) Urine Nitrate (Negative) Urine Bilirubin (Negative) Urine Urobilinogen (Negative) mg/dL Ur Leukocyte Cortney ase (Negative) Urine RBC (0-2) /hpf Urine WBC (0-5) /hpf Ur Squamous Epith Cells (0-5) /hpf Amorphous Sediment Urine Bacteria (NONE) /hpf Urine Mucus /hpf Discharge Plan Discharge Patient Disposition: Home Clinical Impression: Constipation, Abdominal pain, chronic, generalized Condition: Stable Prescriptions: New magnesium citrate Solution 150 ml PO BID PRN (Reason: constipation) Qty: 296 RF: 0 No Action sucralfate [Carafate] 1 gram tablet See Rx Instructions .ROUTE .COMPLEX RF: 0 ondansetron HCl [Zofran] 4 mg tablet 4 mg PO Q6H PRN (Reason: nausea and vomiting) Qty: 20 RF: 0 Breo Ellipta 100-25 mcg/dose blister with device 1 inh INHALATION Q24H RF: 0 albuterol sulfate [Proventil HFA] 90 mcg/actuation HFA aerosol inhaler 2 puff INHALATION Q4H PRN (Reason: Shortness Of Breath) RF: 0 fexofenadine 180 mg tablet 180 mg PO QAM RF: 0 montelukast 10 mg tablet 10 mg PO BID RF: 0 fluticasone propionate [Allergy Relief (fluticasone)] 50 mcg/actuation spray,suspension See Rx Instructions .ROUTE .COMPLEX PRN (Reason: Nasal Congestion) RF: 0 acetaminophen [Tylenol Arthritis Pain] 650 mg Tablet Extended Release 1,300 mg PO PRN RF: 0 pantoprazole 40 mg tablet,delayed release (DR/EC) 40 mg PO BID 30 Days Qty: 60 RF: 0 hyoscyamine sulfate [Levsin/SL] 0.125 mg tablet, sublingual 0.125 mg sublingual Q6H PRN (Reason: abdominal caba) Qty: 30 RF: 0 albuterol sulfate 2.5 mg /3 mL (0.083 %) Solution For Nebulization 2.5 mg inhalation Q6H PRN (Reason: Shortness Of Breath) RF: 0 Rolaids See Rx Instructions .ROUTE .COMPLEX RF: 0 Stool Softener Blue Tab [place] 2 tab PO PRN RF: 0 Discharge Orders: Discharge ED (Routine); Ordered 06/22/20 Ordered By: Jason Cash Referrals: Marcia Thomas FNP [Primary Care Provider] - Discharge Diet: Clear Liquid Discharge Activity: Resume usual activity Patient Instructions: Constipation (ED), Opioid Safety Activity Restrictions/Additional Instructions: Clear liquid diet mag citrate 150 mL every 6 to 8 hours until desired results achieved. This will cause significant cramping avoid narcotic medications as they will further worsen symptoms. Follow-up with your primary care doctor next week. 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
[2020-06-22 13:47] VITALS: RESP 18
[2020-06-22] MEDS: morphine 4 mg/mL SDV 1 mL IVP ×2 (13:47→14:29)
[2020-06-22 14:19] LABS: Basophils # 0.1 10^3/uL (0.0-0.1); Basophils % 0.4 %; Eosinophils # 0.1 10^3/uL (0.0-0.8); Eosinophils % 0.8 %; Hematocrit 39.5 % (37.0-47.0); Hemoglobin 12.7 g/dL (11.5-15.3); Lymphocytes # 1.3 10^3/uL (0.8-4.8); Lymphocytes % 8.7 %; Mean Corpuscular HGB Conc 32.2 g/dL (30.0-36.0); Mean Corpuscular Hemoglobin 28.9 pg (28.0-34.0); Mean Platelet Volume 10.3 fL (7.4-10.4); Monocytes # 0.8 10^3/uL (0.2-0.9); Monocytes % 5.4 %; Neutrophils # 12.64 10^3/uL (1.8-7.7); Neutrophils % 84.1 %; Nucleated Red Blood Cells % 0 %; Platelet Count 325 10^3/cmm (130-400); Red Blood Count 4.39 10^6/uL (4.1-5.3); Red Cell Distribution Width 12.4 % (12.1-15.1)
[2020-06-22 14:24] LABS: Urine Color Dark Yellow (Yellow)
[2020-06-22 14:25] LABS: Bilirubin Urine Neg (Negative); Blood Urine 2+ (Negative); Glucose Urine UA Norm (Normal); Ketones Urine 1+ (Negative); Leukocyte Esterase Urine 1+ (Negative); Nitrate Urine Negative (Negative); Protein Urine Neg (Negative); Specific Gravity, Urine 1.025 (1.005-1.030); Urine Appearance Cloudy (CLEAR); Urobilinogen Urine 1 mg/dL (Negative); pH Urine 5 (5-7)
[2020-06-22 14:26] LABS: Add Urine Microscopic? YES
[2020-06-22 14:29] VITALS: RESP 18; O2SAT 97
[2020-06-22 14:29] LABS: Bacteria Urine 2+ /hpf; Mucus Urine 2+ /hpf
[2020-06-22 14:30] LABS: Add Urine Culture? No
[2020-06-22 14:31] VITALS: BP 88/44; PULSE 63; RESP 18; O2SAT 96
[2020-06-22 14:42] LABS: Alanine Aminotransferase 14 U/L (0-33); Albumin Level 4.1 g/dL (3.5-5.2); Alkaline Phosphatase 72 IU/L (35-105); Anion Gap 13.9 (5-19); Aspartate Amino Transferase 16 U/L (0-32); Blood Urea Nitrogen 13 mg/dL (6-20); Carbon Dioxide 23 mmol/L (22-29); Chloride 104 mmol/L (98-107); Creatine Phosphokinase 56 U/L (26-192); Glomerular Filtration Rate 80.3 mL/min (90-130); Glucose 124 mg/dL (65-115); Lipase 26 U/L (13-60); Osmolality Calculated 286 mOsm/kg (285-295); Potassium 3.9 mmol/L (3.5-5.1); Sodium 137 mmol/L (136-145); Total Bilirubin 0.5 mg/dL (0.15-1.2); Total Protein 7.1 g/dL (6.6-8.7)
[2020-06-22 14:46] LABS: HCG, Serum Qual Negative (Negative)
[2020-06-22] MEDS: iohexol 300 mg/mL 100 mL Btl IV (15:02)
[2020-06-22 16:04] VITALS: BP 85/40; PULSE 67; RESP 18; O2SAT 97
[2020-06-22] MEDS: sodium chloride 0.9% 1,000 ML 999 ML IV (16:15)
[2020-06-22 17:08] VITALS: BP 98/49; PULSE 79; RESP 20; TEMP 36.8; O2SAT 100
== END 2020-06-22 17:10 | disposition home or self-care (01) ==
PROVIDERS: Emergency Provider Family Medicine; PCP Nurse Practitioner Family
DX: K59.00 Constipation, unspecified (principal); G89.29 Other chronic pain; R10.84 Generalized abdominal pain
CPT/HCPCS: 36415; 74177; 80053; 81001; 82550; 83690; 84703; 85025; 96361; 96374; 96375; 96376; 99284; J2270; J2405; J7030; Q9967

== ENCOUNTER 2020-11-08 14:23 | Emergency (ER) | payer SELFPAY ==
[2020-11-08 14:39] VITALS: BP 112/76; PULSE 81; RESP 18; TEMP 37; O2SAT 97; BMI 31.9
--- NOTE | 2020-11-08 15:06 | W.ED.COVID ---
HPI - COVID General: Chief Complaint: COVID symptoms Stated Complaint: dizziness, nausea, headache, CP Time Seen by Provider: 11/08/20 14:52 Triage information: Has fever, cough or shortness of breath. Exposure to COVID + person last 14 days History of Present Illness: HPI Narrative: Patient with possible exposure to Covid. Started with sore throat headache muscle aches cough not feeling well today MD complaint: reported COVID exposure COVID 19 common symptoms: positive chills, cough, non-productive cough, body aches, throat pain and nasal congestion; negative headache(s), nausea or vomiting COVID 19 other sytmptoms: negative chest pain Onset (ago): hour(s) Severity: mild Pertinent comorbid conditions: COPD/respiratory disease Treatment prior to arrival: none COVID Results: SARS-CoV-2 Antigen (Rapid) Negative (Negative) 11/08/20 15:34 11/08/20 SARS-CoV-2 RNA (RT-PCR) Not detected (NOT DETECTED) 12/27/19 18:00 12/27/19 Review of Systems Const: Reports: chills and body aches Eyes: Denies: change in vision or blurry vision ENMT: Reports: throat pain and nasal congestion Card: Denies: chest pain or dyspnea on exertion Resp: Reports: non-productive cough GI: Denies: abdominal pain, nausea or vomiting Musc: Denies: extremity pain Skin/Breast: Denies: rash Neuro: Denies: headache(s) Psych: Denies: anxiety or depression Silvio/Lymph: Denies: easy bruising PFSH ED PFSH: Social History Smoking and tobacco status: never smoked Alcohol intake: never Female Reproductive History: Date of last menstrual period: 11/04/20 Physical Exam Const: COMMON NORMALS: no acute distress Resp: COMMON NORMALS: normal respiratory effort Psych: COMMON NORMALS: mental status grossly normal Course Vital Signs: Vital signs: Vital Signs Temperature 98.6 F 11/08/20 14:39 Pulse Rate 81 11/08/20 14:39 Respiratory Rate 18 11/08/20 14:39 Blood Pressure 112/76 11/08/20 14:39 Pulse Oximetry 97 11/08/20 15:36 MDM - COVID MDM Narrative: Medical decision making narrative: Pt notified of lab results Lab Data: Labs: Lab Results 11/08/20 Range/Units 15:34 SARS-CoV-2 Ag (Rap id) Negative (Negative) COVID Results: SARS-CoV-2 Antigen (Rapid) Negative (Negative) 11/08/20 15:34 11/08/20 SARS-CoV-2 RNA (RT-PCR) Not detected (NOT DETECTED) 12/27/19 18:00 12/27/19 Discharge Plan Discharge Patient Disposition: Home Clinical Impression: Suspected severe acute respiratory syndrome coronavirus 2 (SARS-CoV-2) infection Condition: Stable Prescriptions: New Decadron 6 mg tablet 6 mg PO DAILY Qty: 7 RF: 0 No Action sucralfate [Carafate] 1 gram tablet See Rx Instructions .ROUTE .COMPLEX RF: 0 ondansetron HCl [Zofran] 4 mg tablet 4 mg PO Q6H PRN (Reason: nausea and vomiting) Qty: 20 RF: 0 Breo Ellipta 100-25 mcg/dose blister with device 1 inh INHALATION Q24H RF: 0 albuterol sulfate [Proventil HFA] 90 mcg/actuation HFA aerosol inhaler 2 puff INHALATION Q4H PRN (Reason: Shortness Of Breath) RF: 0 fexofenadine 180 mg tablet 180 mg PO QAM RF: 0 montelukast 10 mg tablet 10 mg PO BID RF: 0 fluticasone propionate [Allergy Relief (fluticasone)] 50 mcg/actuation spray,suspension See Rx Instructions .ROUTE .COMPLEX PRN (Reason: Nasal Congestion) RF: 0 silver sulfadiazine [Silvadene] 1 % cream 1 applic topical DAILY 3 Days Qty: 25 RF: 0 acetaminophen [Tylenol Arthritis Pain] 650 mg Tablet Extended Release 1,300 mg PO PRN RF: 0 hyoscyamine sulfate [Levsin/SL] 0.125 mg tablet, sublingual 0.125 mg sublingual Q6H PRN (Reason: abdominal caba) Qty: 30 RF: 0 albuterol sulfate 2.5 mg /3 mL (0.083 %) Solution For Nebulization 2.5 mg inhalation Q6H PRN (Reason: Shortness Of Breath) RF: 0 Rolaids See Rx Instructions .ROUTE .COMPLEX RF: 0 Stool Softener Blue Tab [place] 2 tab PO PRN RF: 0 magnesium citrate Solution 150 ml PO BID PRN (Reason: constipation) Qty: 296 RF: 0 Discharge Orders: Discharge ED (Routine); Ordered 11/08/20 Ordered By: Bandar Walton Referrals: Marcia Thomas FNP [Primary Care Provider] - Discharge Diet: Usual diet Discharge Activity: Increase activity as tolerated Activity Restrictions/Additional Instructions: Follow-up with medical provider as directed. Take medications as prescribed. Return to the ER or your medical provider if condition worsens. Please read and understand discharge instructions. If any questions ask please. Call back an hour and half her test results if you have not heard from us within an hour. 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
[2020-11-08 15:36] VITALS: O2SAT 97
[2020-11-08 16:07] LABS: SARS Covid-2 Antigen Negative (Negative)
== END 2020-11-08 15:37 | disposition home or self-care (01) ==
PROVIDERS: Emergency Provider Nurse Practitioner Family; PCP Nurse Practitioner Family
DX: Z20.822 Contact with and (suspected) exposure to COVID-19 (principal)
CPT/HCPCS: 87426; 99282

== ENCOUNTER 2021-08-12 17:42 | Emergency (ER) | payer MEDICAID, SELFPAY ==
[2021-08-12 17:48] VITALS: BP 125/75; PULSE 95; RESP 18; TEMP 36.9; O2SAT 96; BMI 33.4
--- NOTE | 2021-08-12 18:03 | ED_ITS ---
HPI - Altered Mental Status General: Chief Complaint: Altered Mental Status Stated Complaint: DECREASED LOC/ LETHARGIC Time Seen by Provider: 08/12/21 18:03 History of Present Illness: Ms. Marr is a 41-year-old lady with significant past medical history of depression and asthma who presents to the emergency department due to altered mental status. She apparently has been going through a tough divorce and reports feeling down and tired lately. She was feeling worse this morning however presents to the emergency department after she was found sitting in her car with altered mental status. Apparently EMS found diminished lung sounds and administered albuterol treatment. Local visit with him was normal. Patient does report mildly worse than baseline well-controlled asthma. Denies intentional self-harm or overdose. Overall course of symptoms has been persistent. Patient does not recall specifics of event or why she got hot and unable to get out of her car. No other specific changes in health, exacerbating, or alleviating factors identified. Onset (ago): hour(s) Severity: moderate Consistency of symptoms: Constant Associated symptoms: Reports depression Treatments prior to arrival: other Review of Systems General: Reports: 10 or more systems reviewed and unremarkable except in HPI and below Psych: Reports: depression [facility] ED PFSH: Medical History (Updated 08/12/21 @ 20:54 by Clark Kelly MD) Asthma Psychiatric care Social History Smoking and tobacco status: never smoked Alcohol intake: never Female Reproductive History: Date of last menstrual period: 11/04/20 Physical Exam Const: COMMON NORMALS: alert GENERAL APPEARANCE: cooperative and well developed HENMT: COMMON NORMALS: normocephalic and atraumatic HEAD & SCALP: normocephalic and atraumatic Eye: COMMON NORMALS: conjunctivae normal CONJUNCTIVA: Yes conjunctivae normal SCLERA: sclerae normal Neck/C-Spine: COMMON NORMALS: supple GENERAL: Yes trachea midline Resp: COMMON NORMALS: clear to auscultation bilaterally EFFORT & INSPECTION: Yes able to speak in complete sentences AUSCULTATION: clear to auscultation bilaterally Cardio: COMMON NORMALS: regular rate and regular rhythm RATE: regular rate RHYTHM: regular rhythm GI: COMMON NORMALS: Soft to palpation PALPATION: Yes Soft to palpation and No Tenderness to palpation present (GI) PERCUSSION: normal to percussion Extremity: GENERAL: Yes normal exam except as noted and No edema Neuro: COMMON NORMALS: moves all extremities SENSORIUM/ORIENTATION: Yes alert and No Orientation impaired Psych: ATTITUDE: Yes Withdrawn affect present SPEECH: Yes slow Course ED course: - Patient was seen and evaluated by me at bedside - Patient placed on cardiac monitors, IV access obtained - Initial evaluation notable for exam as above. No focal neurologic deficits. Patient denies suicidal or homicidal ideation. - Labs and xrays personally interpreted by me. EKG showing sinus rhythm with nonspecific ST segment abnormalities. No STEMI. -IV fluids given - Labs notable for no leukocytosis, normal hemoglobin. ABG with mildly decreased PCO2, CO negative. Metabolic panel with perhaps mild evidence of dehydration. Urinalysis not concerning for urinary tract infection. Toxic ingestions and urine drug screen negative. - Imaging notable for no lobar consolidation or pneumothorax on chest x-ray. CT head negative for acute intracranial abnormality. - Upon serial reexamination after treatment the patient was improved - Based on patient history, evaluation, and testing as interpreted the most likely cause of the patient's condition is unspecified transient neurologic event - The results of ED evaluation were discussed with the patient including pres criptions and/or symptomatic cares (if applicable) including appropriate and responsible use, followup plan, and return precautions. The patient verbalized understanding and felt safe for discharge. - Patient discharged in satisfactory condition. Note: Click bubbles or prepopulated cantu in note writing are used for assistance with data collection and billing and are inherently more limited than narrative and other text portions of this note. Please use narrative for additional clinical history and defer to narrative/free test for any case of contradictory information. If information appears in only free text or click bubble it should be considered present or absent as reported. Please contact note editorial writer for clarifications of clinical information or contradictory information. MDM is a brief summary, contradictory or erroneous seeming information should be clarified and full note should be reviewed. Vital Signs: Vital signs: Vital Signs Temperature 98.4 F 08/12/21 17:48 Pulse Rate 77 08/12/21 21:16 Respiratory Rate 16 08/12/21 21:16 Blood Pressure 117/82 08/12/21 21:16 Pulse Oximetry 98 08/12/21 21:16 MDM - Altered Mental Status Medical Decision Making 41-year-old lady presenting with altered mental status. No clear etiology identified on ED evaluation. Patient improved with IV fluids. Satisfactory for outpatient management and follow-up with strict return precautions. Medical Records I reviewed the patient's medical records. Lab Data I reviewed the patient's lab results. : 08/12/21 18:22 08/12/21 18:22 Radiology Impressions Chest X-Ray 08/12/21 18:11 IMPRESSION: No acute findings. Unchanged exam. Head CT 08/12/21 19:20 IMPRESSION: No acute intracranial abnormality. Laboratory Results WBC 8.9 10^3/uL (4.0-10.0) 08/12/21 18: RBC 4.32 10^6/uL (4.1-5.3) 08/12/21 18:22 Hgb 12.5 g/dL (11.5-15.3) 08/12/21 18: Hct 38.4 % (37.0-47.0) 08/12/21 18:22 MCV 88.9 fl (81-99) 08/12/21 18: MCH 28.9 pg (28.0-34.0) 08/12/21 18:22 MCHC 32.6 g/dL (30.0-36.0) 08/12/21 18:22 RDW 12.2 % (12.1-15.1) 08/12/21 18: Plt Count 291 10^3/cmm (130-400) 08/12/21 18:22 MPV 10.4 fL (7.4-10.4) 08/12/21 18:22 Neut % (Auto) 68.1 % 08/12/21 18:22 Lymph % (Auto) 18.8 % 08/12/21 18:22 [place] % (Auto) 8.8 % 08/12/21 18:22 Eos % (Auto) 3.4 % 08/12/21 18:22 Baso % (Auto) 0.3 % 08/12/21 18:22 Neut # (Auto) 6.07 10^3/uL (1.8-7.7) 08/12/21 18:22 Lymph # (Auto) 1.7 10^3/uL (0.8-4.8) 08/12/21 18:22 [place] # (Auto) 0.8 10^3/uL (0.2-0.9) 08/12/21 18:22 Eos # (Auto) 0.3 10^3/uL (0.0-0.8) 08/12/21 18:22 Baso # (Auto) 0.0 10^3/uL (0.0-0.1) 08/12/21 18:22 Nucleated RBC % (auto) 0 % 08/12/21 18: Nucleated RBCs # 0.0 /100WBC 08/12/21 18:22 Specimen Type Arterial 08/12/21 18:20 Sample Site Brachial, left 08/12/21 18:20 ABG pH 7.45 (7.35-7.45) 08/12/21 18:20 ABG pCO2 30.5 mmHg (35-45) L 08/12/21 18:20 ABG pO2 97.4 mmHg (80.0-100.0) 08/12/21 18:20 ABG HCO3 21.4 mmol/L (22-26) L 08/12/21 18:20 ABG O2 Saturation 98.8 08/12/21 18:20 ABG Base Excess -1.6 mmol/L (-2.0-2.0) 08/12/21 18:20 Black Test Pos 08/12/21 18:20 A-a O2 Gradient 1.6 mmHg (5-10) L 08/12/21 18:20 Hematocrit 40.2 % (37-47) 08/12/21 18:20 Hgb O2 Saturation 97.4 % (95-100) 08/12/21 18:20 Carboxyhemoglobin 0.5 %THgb (0.4-20.1) 08/12/21 18:20 Methemoglobin 0.8 % (0.4-1.5) 08/12/21 18:20 Total Hemoglobin 13.1 g/dL (12-16) 08/12/21 18:20 Sodium 138.0 mmol/L (131-143) 08/12/21 18:20 Potassium 4.1 mmol/L (3.5-5.0) 08/12/21 18:20 Glucose 95.0 mg/dL (70-115) 08/12/21 18:20 Ionized Calcium 1.2 mmol/L (1.1-1.4) 05/17/22 18:20 O2 Delivery Device Room air 08/12/21 18:20 FiO2 21.0 % 08/12/21 18:20 Gift Shop Manager ID Cak 08/12/21 18:20 Sodium 132 mmol/L (136-145) L 08/12/21 18:22 Potassium 4.1 mmol/L (3.5-5.1) 08/12/21 18:22 Chloride 101 mmol/L (98-107) 08/12/21 18:22 Carbon Dioxide 20 mmol/L (22-29) L 08/12/21 18:22 Anion Gap 15.1 (5-19) 08/12/21 18:22 BUN 13 mg/dL (6-20) 08/12/21 18:22 Creatinine 0.6 mg/dL (0.5-0.9) 08/12/21 18:22 GFR Calculation 110.7 mL/min (90-130) 08/12/21 18:22 Glucose 97 mg/dL (65-115) 08/12/21 18:22 Calculated Osmolality 274 mOsm/kg (285-295) L 08/12/21 18:22 Lactate 0.8 mmol/L (0.5-2.2) 08/12/21 18:22 Calcium 9.0 mg/dL (8.5-10.5) 08/12/21 18:22 Total Bilirubin 0.2 mg/dL (0.15-1.2) 08/12/21 18:22 AST 16 U/L (0-32) 08/12/21 18:22 ALT 11 U/L (0-33) 08/12/21 18:22 Alkaline Phosphatase 84 IU/L (35-105) 08/12/21 18:22 Creatine Kinase 58 U/L (26-192) 08/12/21 18:22 Total Protein 7.4 g/dL (6.6-8.7) 08/12/21 18:22 Albumin 4.1 g/dL (3.5-5.2) 08/12/21 18:22 Globulin 3.3 g/dL (1.3-4.6) 08/12/21 18:22 TSH 2.11 uIU/mL (0.27-4.20) 08/12/21 18:22 HCG, Qual Negative (Negative) 08/12/21 19:35 Urine Color Yellow (Yellow) 08/12/21 19:35 Urine Appearance Clear (CLEAR) 08/12/21 19:35 Urine pH 5 (5-7) 08/12/21 19:35 Ur Specific [place] 1.015 (1.005-1.030) 08/12/21 19:35 Urine Protein Neg (Negative) 08/12/21 19:35 Urine Glucose (UA) Norm (Normal) 08/12/21 19:35 Urine Ketones Negative (Negative) 08/12/21 19:35 Urine Blood Neg (Negative) 08/12/21 19:35 Urine Nitrate Negative (Negative) 08/12/21 19:35 Urine Bilirubin Neg (Negative) 08/12/21 19:35 Urine Urobilinogen Norm mg/dL (Negative) 08/12/21 19:35 Ur Leukocyte Esterase Negative (Negative) 08/12/21 19:35 Salicylates < 0.3 mg/dL (3-10) L 08/12/21 18:22 Urine Opiates Screen Negative ng/mL (Negative) 08/12/21 19:35 Acetaminophen < 5.0 ug/mL (10-30) L 08/12/21 18:22 Ur Barbiturates Screen Negative ng/mL (Negative) 08/12/21 19:35 Ur Phencyclidine Scrn Negative ng/mL (Negative) 08/12/21 19:35 Ur Amphetamines Screen Negative ng/mL (Negative) 08/12/21 19:35 U Benzodiazepines Scrn Negative ng/mL (Negative) 08/12/21 19:35 Urine Cocaine Screen Negative ng/mL (Negative) 08/12/21 19:35 U Marijuana (THC) Screen Negative ng/mL (Negative) 08/12/21 19:35 Ethyl Alcohol < 10 mg/dL (0-10) 08/12/21 18:22 Discharge Plan Discharge Patient Disposition: Home Clinical Impression: Altered mental status, Mild dehydration Condition: Stable Prescriptions: No Action Breo Ellipta 100-25 mcg/dose blister with device 1 inh INHALATION Q24H 0RF albuterol sulfate [Proventil HFA] 90 mcg/actuation HFA aerosol inhaler 2 puff INHALATION Q4H PRN (Reason: Shortness Of Breath) 0RF fexofenadine 180 mg tablet 180 mg PO QAM 0RF montelukast 10 mg tablet 10 mg PO BID 0RF fluticasone propionate [Allergy Relief (fluticasone)] 50 mcg/actuation spray,suspension See Rx Instructions .ROUTE .COMPLEX PRN (Reason: Nasal Congestion) 0RF Rx Instructions: 1 spray intranasally in each nare up to bid buspirone 5 mg tablet 5 mg PO BID 0RF acetaminophen [Tylenol Arthritis Pain] 650 mg Tablet Extended Release 1,300 mg PO PRN 0RF albuterol sulfate 2.5 mg /3 mL (0.083 %) Solution For Nebulization 2.5 mg inhalation Q6H PRN (Reason: Shortness Of Breath) 0RF venlafaxine 225 mg Tablet Extended Release 24hr 225 mg PO DAILY 0RF Discharge Orders: Discharge ED (Routine); Ordered 08/12/21 Ordered By: Clark Kelly Referrals: Marcia Thomas FNP [Primary Care Provider] - Discharge Diet: Usual diet Discharge Activity: Increase activity as tolerated Patient Instructions: Altered Mental Status (ED) Activity Restrictions/Additional Instructions: Thank you for visiting the emergency department. You were seen and evaluated for episode of altered mental status. The exact cause of your symptoms is unclear as no significant abnormality was identified on imaging or laboratory studies to explain symptoms. We are pleased that you have improved. You were found to be mildly dehydrated. Please ensure that you stay hydrated over the next few days. Please follow-up with your primary care provider. Please return to the emergency department for recurrent episodes, any new focal neurologic symptoms, or anything else that you are concerned about and feel needs emergency department evaluation. Stand Alone Forms: Work/School Release Coding Level of Care Code ED Plunket Nurse for Efrain Fwneva Exam Comprehensive
--- NOTE | 2021-08-12 18:11 | XRR_ITS ---
PROCEDURE INFORMATION: Exam: XR Chest Exam date and time: 08/12/2021 6:42 PM Age: 41 years old Clinical indication: Shortness of breath; Chest wall pain; Additional info: SOB, AMS TECHNIQUE: Imaging protocol: XR of the chest. Views: 1 view. COMPARISON: CR XR chest 1V portable [id number] 12/27/2019 5:50 PM FINDINGS: Lungs: Unremarkable. No consolidation. Pleural spaces: Unremarkable. No pleural effusion. No pneumothorax. Heart/Mediastinum: Unremarkable. No cardiomegaly. Bones/joints: No acute abnormality. XR/XR chest 1V portable [id number] IMPRESSION: No acute findings. Unchanged exam.
--- NOTE | 2021-08-12 18:12 | ECG_ITS ---
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 Measurements Intervals [place] Rate: 87 P: 36 [place]: 157 QRS: -5 QRSD: 83 T: 17 QT: 352 QTc: 424 Interpretive Statements SINUS RHYTHM WITH SINUS ARRHYTHMIA LOW QRS VOLTAGE IN PRECORDIAL LEADS [QRS DEFLECTION < 1.0 mV IN CHEST LEADS] POSSIBLE ANTERIOR MYOCARDIAL INFARCTION , PROBABLY OLD [30 ms Q WAVE IN V3/V4, OR R < 0.2 mV IN V4] POSSIBLE INFERIOR MYOCARDIAL INFARCTION , PROBABLY OLD [30 ms Q WAVE IN II/aVF] Compared to ECG 12/27/2019 18:04:09 No significant changes Electronically Signed On 08-12-2021 21:56:41 CDT by Boris Zavaleta M.D. [id number]
[2021-08-12] MEDS: lactated ringers 1,000 ML 999 ML IV (18:29)
[2021-08-12 18:30] VITALS: BP 149/105; PULSE 83; RESP 17; O2SAT 97
[2021-08-12 18:32] LABS: ABG PCO2 30.5 mmHg (35-45); ABG PH Result 7.45 (7.35-7.45); Alveolar-Arterial Oxygen Gradi 1.6 mmHg (5-10); Arterial Blood Gas Hematocrit 40.2 % (37-47); Base Excess ABG -1.6 mmol/L (-2.0-2.0); Blood Gas Allen Test Pos; Blood Gas Operator Identificat CAK; Blood Gas Sample Site Brachial, left; Blood Gas Sample Type Arterial; Carboxyhemoglobin 0.5 %THgb (0.4-20.1); HCO3 ABG 21.4 mmol/L (22-26); HGB O2 Sat 97.4 % (95-100); Ionized Calcium Level - ABG 1.2 mmol/L (1.1-1.4); Methemoglobin 0.8 % (0.4-1.5); Oxygen Device ROOM AIR; Oxygen Saturation ABG 98.8; PO2 ABG 97.4 mmHg (80.0-100.0); Potassium Level - ABG 4.1 mmol/L (3.5-5.0); Total Hemoglobin 13.1 g/dL (12-16)
[2021-08-12 18:41] LABS: Basophils % 0.3 %; Eosinophils # 0.3 10^3/uL (0.0-0.8); Eosinophils % 3.4 %; Hematocrit 38.4 % (37.0-47.0); Hemoglobin 12.5 g/dL (11.5-15.3); Lymphocytes # 1.7 10^3/uL (0.8-4.8); Lymphocytes % 18.8 %; Mean Corpuscular HGB Conc 32.6 g/dL (30.0-36.0); Mean Corpuscular Hemoglobin 28.9 pg (28.0-34.0); Mean Corpuscular Volume 88.9 fl (81-99); Mean Platelet Volume 10.4 fL (7.4-10.4); Monocytes # 0.8 10^3/uL (0.2-0.9); Monocytes % 8.8 %; Neutrophils # 6.07 10^3/uL (1.8-7.7); Neutrophils % 68.1 %; Nucleated Red Blood Cells % 0 %; Platelet Count 291 10^3/cmm (130-400); Red Blood Count 4.32 10^6/uL (4.1-5.3); Red Cell Distribution Width 12.2 % (12.1-15.1); White Blood Count 8.9 10^3/uL (4.0-10.0)
--- NOTE | 2021-08-12 19:20 | CTR_ITS ---
PROCEDURE INFORMATION: Exam: CT Head Without Contrast Exam date and time: 08/12/2021 7:41 PM Age: 41 years old Clinical indication: Dizziness and weakness, extremity; Bilateral; Additional info: AMS TECHNIQUE: Imaging protocol: Computed tomography of the head without contrast. Radiation optimization: All CT scans at this facility use at least one of these dose optimization techniques: automated exposure control; mA and/or kV adjustment per patient size (includes targeted exams where dose is matched to clinical indication); or iterative reconstruction. COMPARISON: CT head wo con* [id number] 04/28/2020 12:14 PM RADIATION DOSE METRICS: Total DLP (mGy-cm): 770.15 FINDINGS: Brain: Normal. No hemorrhage. Unremarkable white matter. No mass effect. Cerebral ventricles: No ventriculomegaly. Paranasal sinuses: Visualized sinuses are unremarkable. No fluid levels. Mastoid air cells: Visualized mastoid air cells are well aerated. Nasopharynx: There is unchanged patchy mucosal thickening in the ethmoidal air cells. Bones/joints: Unremarkable. No acute fracture. Soft tissues: Unremarkable. CT/CT head wo con* [id number] IMPRESSION: No acute intracranial abnormality.
[2021-08-12 19:32] LABS: Lactate (Lactic Acid level) 0.8 mmol/L (0.5-2.2)
[2021-08-12 19:42] LABS: Add Urine Microscopic? NO; Charge for UA Resulting for Rev
[2021-08-12 19:45] LABS: HCG Qualitative Urine. Negative (Negative)
[2021-08-12 19:46] LABS: Bilirubin Urine Neg (Negative); Blood Urine Neg (Negative); Glucose Urine UA Norm (Normal); Ketones Urine Negative (Negative); Leukocyte Esterase Urine Negative (Negative); Nitrate Urine Negative (Negative); Protein Urine Neg (Negative); Specific Gravity, Urine 1.015 (1.005-1.030); Urine Appearance Clear (CLEAR); Urine Color Yellow (Yellow); Urobilinogen Urine Norm (Negative); pH Urine 5 (5-7)
[2021-08-12 19:46] LABS: Alanine Aminotransferase 11 U/L (0-33); Albumin Level 4.1 g/dL (3.5-5.2); Alkaline Phosphatase 84 IU/L (35-105); Blood Urea Nitrogen 13 mg/dL (6-20); Carbon Dioxide 20 mmol/L (22-29); Chloride 101 mmol/L (98-107); Creatine Phosphokinase 58 U/L (26-192); Globulin 3.3 g/dL (1.3-4.6); Glomerular Filtration Rate 110.7 mL/min (90-130); Glucose 97 mg/dL (65-115); Osmolality Calculated 274 mOsm/kg (285-295); Sodium 132 mmol/L (136-145); Thyroid Stimulating Hormone 2.11 uIU/mL (0.27-4.20); Total Bilirubin 0.2 mg/dL (0.15-1.2); Total Protein 7.4 g/dL (6.6-8.7)
[2021-08-12 19:47] LABS: Acetaminophen < 5.0 ug/mL (10-30); Alcohol Level < 10 mg/dL (0-10); Salicylate < 0.3 mg/dL (3-10)
[2021-08-12 19:49] LABS: Anion Gap 15.1 (5-19); Aspartate Amino Transferase 16 U/L (0-32); Potassium 4.1 mmol/L (3.5-5.1)
[2021-08-12 19:54] LABS: Amphetamines Screen Urine Negative (Negative); Barbiturates Screen Urine Negative (Negative); Benzodiazepines Screen Urine Negative (Negative); Cocaine Screen Urine Negative (Negative); Opiate Screen Urine Negative (Negative); PCP Screen Urine Negative (Negative); THC Screen Urine Negative (Negative)
[2021-08-12 20:37] VITALS: BP 120/84; PULSE 88; RESP 16; O2SAT 98
[2021-08-12 21:00] VITALS: BP 117/82; PULSE 77; RESP 16; O2SAT 98
[2021-08-12 21:16] VITALS: BP 117/82; PULSE 77; RESP 16; O2SAT 98
== END 2021-08-12 21:18 | disposition home or self-care (01) ==
PROVIDERS: Emergency Provider Emergency Medicine; PCP Nurse Practitioner Family
DX: E86.0 Dehydration (principal); R41.82 Altered mental status, unspecified
CPT/HCPCS: 36600; 70450; 71045; 80051; 80053; 80306; 80307; 81003; 81025; 82330; 82550; 82805; 83605; 84443; 85025; 93005; 96360; 99284

== ENCOUNTER → 2021-12-31 08:44 | Outpatient (BNVA) | payer OTHER, SELFPAY | PROVIDERS: PCP Nurse Practitioner Family; Visit Provider Nurse Practitioner | DX: F33.1 Major depressive disorder, recurrent, moderate (principal); Z79.899 Other long term (current) drug therapy | CPT/HCPCS: 80061; 83036 ==

== ENCOUNTER 2022-02-18 11:56 | Outpatient (CLI) | payer MEDICAID, SELFPAY ==
[2022-01-13 10:26] VITALS: BP 133/91; BMI 34.9
--- NOTE | 2022-02-18 12:05 | MM_ITS ---
WS: [id number] BILATERAL SCREENING DIGITAL TOMOSYNTHESIS MAMMOGRAM WITH CAD HISTORY: SCREENING COMPARISON: None available. Bilateral CC and MLO views with tomosynthesis and synthetic mammography submitted. Computer aided det ection analyzed. Breast composition: The breasts are almost entirely fatty. No suspicious masses, microcalcifications or architectural distortion. MM/[place] [id number] IMPRESSION: BI-RADS: 1-Negative FOLLOW UP: 1 Year Follow-up
== END 2022-02-18 11:57 | disposition home or self-care (01) ==
LOC: RAD 11:59
PROVIDERS: PCP Family Medicine; Visit Provider Family Medicine
DX: Z12.31 Encounter for screening mammogram for malignant neoplasm of breast (principal)
CPT/HCPCS: 77063; 77067

== ENCOUNTER 2022-05-12 06:18 | Outpatient (CLI) | payer MEDICAID, SELFPAY ==
[2022-01-13 10:26] VITALS: BP 133/91; BMI 34.9
== END 2022-05-12 06:19 | disposition home or self-care (01) ==
LOC: SLEEP 05-13 06:19
PROVIDERS: PCP Family Medicine; Visit Provider Family Medicine
DX: G47.10 Hypersomnia, unspecified (principal); R06.83 Snoring; R53.83 Other fatigue; G47.33 Obstructive sleep apnea (adult) (pediatric)
CPT/HCPCS: 95810

== ENCOUNTER → 2022-12-07 09:46 | Outpatient (BNVA) | payer OTHER, SELFPAY ==
[2022-11-25 09:28] VITALS: BP 133/91; BMI 34.9
== END ==
PROVIDERS: PCP Family Medicine; Visit Provider Nurse Practitioner
DX: Z79.899 Other long term (current) drug therapy (principal)
CPT/HCPCS: 80061; 83036

== ENCOUNTER 2023-02-26 19:30 | Emergency (ER) | payer MEDICAID, SELFPAY ==
[2023-01-18 16:31] VITALS: BP 134/88; BMI 38.1
--- NOTE | 2023-02-26 19:34 | ECG_ITS ---
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 Measurements Intervals [place] Rate: 72 P: 38 SC: 179 QRS: -8 QRSD: 76 T: 65 QT: 382 QTc: 419 Interpretive Statements SINUS RHYTHM LOW QRS VOLTAGE IN PRECORDIAL LEADS [QRS DEFLECTION < 1.0 mV IN CHEST LEADS] POSSIBLE ANTERIOR MYOCARDIAL INFARCTION , PROBABLY OLD [30 ms Q WAVE IN V3/V4, OR R < 0.2 mV IN V4] No previous ECG available for comparison Electronically Signed On 02-27-2023 5:55:55 STATE AUDITOR by Rebeka Beltran M.D. [id number]
--- NOTE | 2023-02-26 19:38 | XRR_ITS ---
PROCEDURE INFORMATION: Exam: XR Chest Exam date and time: 02/26/2023 9:14 PM Age: 42 years old Clinical indication: Chest wall pain; Additional info: Chest pain TECHNIQUE: Imaging protocol: Radiologic exam of the chest. Views: 1 view. COMPARISON: CR XR chest 1V portable [id number] 08/12/2021 6:42 PM FINDINGS: Lungs: Unremarkable. No consolidation. Pleural spaces: Unremarkable. No pleural effusion. No pneumothorax. Heart/Mediastinum: Unremarkable. No cardiomegaly. Bones/joints: Unremarkable. XR/XR chest 1V portable [id number] IMPRESSION: No acute findings.
[2023-02-26 19:51] VITALS: BP 114/76; PULSE 77; RESP 18; O2SAT 100; BMI 38.0
--- NOTE | 2023-02-26 22:00 | ECG_ITS ---
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 Measurements Intervals [place] Rate: 75 P: 52 OR: 175 QRS: -18 QRSD: 85 T: 61 QT: 386 QTc: 433 Interpretive Statements SINUS RHYTHM LOW QRS VOLTAGE IN PRECORDIAL LEADS [QRS DEFLECTION < 1.0 mV IN CHEST LEADS] POSSIBLE ANTERIOR MYOCARDIAL INFARCTION , PROBABLY OLD [30 ms Q WAVE IN V3/V4, OR R < 0.2 mV IN V4] Compared to ECG 02/26/2023 19:34:54 No significant changes Electronically Signed On 02-28-2023 21:36:23 AIRCRAFT CYLINDER MECHANIC by Rebeka Beltran M.D. [id number]
--- NOTE | 2023-02-26 23:26 | ED_ITS ---
Documented by User: HARRIS Monae 02/27/23 01:32 HPI - Chest Pain 2 General: Chief Complaint: Chest Pain Stated Complaint: CP Time Seen by Provider: 02/26/23 23:07 History of Present Illness: Patient is a 42-year-old female with a past medical history significant for depression who presents to the emergency department for evaluation of acute onset chest pain. Patient reports that her chest pain started approximately 1700 and then completely resolved approximately 2 hours later. Patient states that at onset of symptoms she became diaphoretic and nauseous. Denies any episodes of emesis. Patient states that she had a large breakfast this morning and thinks it could be related to acid reflux. She denies abdominal pain, shortness of breath, lightheadedness, dizziness, dysuria, hematuria, constipation, diarrhea, melena, hematochezia, headache, or any other associated symptoms. Patient denies use of oral contraceptive medication, history of DVT/PE, recent surgeries, or long distance travel. No other complaints at this time. Patient reports that she is currently on her menstrual cycle. Associated symptoms: Reports nausea; Deny abdominal pain, dyspnea, fever(s), palpitations or vomiting Review of Systems 2 General: Reports: 10 or more systems reviewed and unremarkable except in HPI and below Const: Denies: fever(s) or chills Eyes: Denies: change in vision or blurry vision ENMT: Denies: throat pain, ear or mastoid pain, ear discharge, nasal discharge or nasal congestion Card: Reports: chest pain; Denies: palpitations Resp: Denies: dyspnea, productive cough, non-productive cough or wheezing GI: Reports: nausea; Denies: abdominal pain, vomiting, diarrhea or constipation : Denies: flank pain, dysuria or hematuria Musc: Denies: neck pain, back pain or extremity pain Skin/Breast: Denies: rash Neuro: Denies: headache(s), dizziness or vertigo PFSH ED 2 PFSH: Medical History (Updated 02/27/23 @ 01:11 by HARRIS Monae) On combination antipsychotic drug therapy Major depressive disorder, recurrent, moderate Lumbar paraspinal muscle spasm Asthma Psychiatric care Family History Grandmother Hepatitis C test positive Other CAD (coronary artery disease) Cancer Diabetes Hypertension Lung disease Psychiatric illness Social History (Updated 12/31/22 @ 10:12 by Gayle Raya LPN) Smoking and tobacco/nicotine status: never used tobacco/nicotine Second hand smoke exposure: No Alcohol intake: never Substance/Drug Use: never Adopted: No Caregiver/support person: Yes (Mother - they care for each other) Lives independently: Yes Household members: family and other Details: mother Housing: House Marital status: Marital status details: recent 10.08.21 Number of children: 0 Number of grandchildren: 0 Highest education level completed: High School Graduate service: No Current occupational status: employed Current occupation: [employer] Current occupational exposures/hazards: No Pets and animals: Yes (15 cats and 2 dogs) Pets & animals: cat(s) and dog(s) Leisure activites: art and other Leisure activities details: watch TV, writting Sexually active: No Do you think of yourself as: Straight/Heterosexual Current gender identity: Female Connie/Episcopalian: Wicca Special connie needs: No Agree to transfusion: Yes Female Reproductive History: Para: 0 Spontaneous abortions: No Physical Exam 2 Const: COMMON NORMALS: no acute distress, patient oriented x3 and alert HENMT: COMMON NORMALS: normocephalic, atraumatic, moist oral mucous membranes and oropharynx normal HEAD & SCALP: normocephalic and atraumatic Eye: COMMON NORMALS: Equal, round and reactive pupils present, EOMs intact bilaterally, conjunctivae normal and no scleral icterus CONJUNCTIVA: Yes conjunctivae normal PUPIL: Yes Equal, round and reactive pupils present Neck/C-Spine: COMMON NORMALS: full ROM Chest: COMMONS NORMALS: normal inspection of the chest and normal palpation of entire chest wall Resp: COMMON NORMALS: normal respiratory effort, No retractions, No use of accessory muscles and clear to auscultation bilaterally AUSCULTATION: clear to auscultation bilaterally Cardio: COMMON NORMALS: regular rate, regular rhythm, No gallops present (Cardio), No clicks present (Cardio), No murmurs present (Cardio) and No rub (Cardio) RATE: regular rate RHYTHM: regular rhythm GI: COMMON NORMALS: Normal to inspection, nondistended, normoactive bowel sounds present, Soft to palpation and non-tender PALPATION: Yes Soft to palpation Extremity: OTHER: Moving bilateral upper and lower extremities without weakness or deficit. Neuro: COMMON NORMALS: patient oriented x3 SENSORIUM/ORIENTATION: Yes alert OTHER: Cranial nerves II through XII grossly intact. Patient is alert and oriented x 4. No focal neurological deficits noted on examination. Sensation intact the bilateral upper and lower extremities. Course 2 Vital Signs: Vital signs: Vital Signs Pulse Rate 75 02/27/23 01:31 Respiratory Rate 16 02/27/23 01:31 Blood Pressure 114/76 02/26/23 19:51 Pulse Oximetry 96 02/27/23 01:31 Oxygen Delivery Me thod Room Air 02/26/23 19:51 MDM - Chest Pain Medical Decision Making Patient is a 42-year-old female with a past medical history significant for depression who presents to the emergency department for evaluation of acute onset chest pain. On physical examination patient is nontoxic and in no acute distress. Vital signs remained stable throughout the ED course. Patient is afebrile. CBC showed leukocytosis at 15.9. CMP, lipase, and troponin all grossly unremarkable. EKG normal sinus rhythm. Chest x-ray showed no acute cardiopulmonary pathology. Patient states that her chest pain had completely resolved. Abdomen is soft and nontender. Patient denies any other symptoms at this time. Patient does have a significant psychiatric history which she has been taking multiple medications for. Symptoms could be related to anxiety. Based off history and physical examination I do not believe the patient symptoms are emergent and warrant further emergent evaluation at this time. I do not think acute coronary syndrome is likely at this time. Patient PERC'd out for pulmonary embolism. I do not think pulmonary embolism is likely at this time. Increase oral hydration. See handout over generalize instructions. Call your primary care provider tomorrow with an update of your symptoms and schedule appointment for further management/evaluation. Return to the emergency department for any rapid or worsening symptoms to include but not limited to worsening chest pain, shortness of breath, palpitations, lightheadedness, dizziness, nausea, vomiting, or as needed. Patient stated understanding of all discharge instructions and was agreeable to the plan of care. I discussed patient's history, exam, and all findings with Dr. Muñiz in the emergency department who agreed my assessment and plan. He did not feel the patient required admission or further evaluation at this time. Differential diagnosis includes but is not limited to acute coronary syndrome, pulmonary embolism, anxiety, costochondritis, GERD, pneumothorax, pancreatitis Lab Data 12/01/23 23:40 02/26/23 23:30 Radiology Impressions Chest X-Ray 02/26/23 19:38 IMPRESSION: No acute findings. Laboratory Results WBC 15.90 10^3/uL (3.29-11.43) H 02/26/23 23:40 WBC Cancelled 02/26/23 23:40 Corrected WBC Cancelled 02/26/23 23:40 RBC 4.35 10^6/uL (3.85-5.65) 02/26/23 23:40 RBC Cancelled 02/26/23 23:40 Hgb 12.30 g/dL (11.27-16.99) 02/26/23 23:40 Hgb Cancelled 02/26/23 23:40 Hct 38.3 % (36-47) 02/26/23 23:40 Hct Cancelled 02/26/23 23:40 MCV 88.0 fl (85-98) 02/26/23 23:40 MCV Cancelled 02/26/23 23:40 MCH 28.3 pg (27-33) 02/26/23 23:40 MCH Cancelled 02/26/23 23:40 MCHC 32.1 g/dL (30-55) 02/26/23 23:40 MCHC Cancelled 02/26/23 23:40 RDW 13.1 % (12.1-15.1) 02/26/23 23:40 RDW Cancelled 02/26/23 23:40 Plt Count 347 10^3/cmm (157-399) 02/26/23 23:40 Plt Count Cancelled 02/26/23 23:40 MPV 10.2 fL (7.4-10.4) 02/26/23 23:40 MPV Cancelled 02/26/23 23:40 Gran % Cancelled 02/26/23 23:40 Neut % (Auto) 82.9 % 02/26/23 23:40 Neut % (Auto) Cancelled 02/26/23 23:40 Lymph % (Auto) 11.3 % 02/26/23 23:40 Lymph % (Auto) Cancelled 02/26/23 23:40 Hamblen % (Auto) 4.3 % 02/26/23 23:40 Hamblen % (Auto) Cancelled 02/26/23 23:40 Eos % (Auto) 0.8 % 02/26/23 23:40 Eos % (Auto) Cancelled 02/26/23 23:40 Baso % (Auto) 0.3 % 02/26/23 23:40 Baso % (Auto) Cancelled 02/26/23 23:40 Neut # (Auto) 13.20 10^3/uL (1.8-7.7) H 02/26/23 23:40 Neut # (Auto) Cancelled 02/26/23 23:40 Lymph # (Auto) 1.8 10^3/uL (0.8-4.8) 02/26/23 23:40 Lymph # (Auto) Cancelled 02/26/23 23:40 Hamblen # (Auto) 0.7 10^3/uL (0.2-0.9) 02/26/23 23:40 Hamblen # (Auto) Cancelled 02/26/23 23:40 Eos # (Auto) 0.1 10^3/uL (0.0-0.8) 02/26/23 23:40 Eos # (Auto) Cancelled 02/26/23 23:40 Baso # (Auto) 0.1 10^3/uL (0.0-0.1) 02/26/23 23:40 Baso # (Auto) Cancelled 02/26/23 23:40 Absolute Gran (auto) Cancelled 02/26/23 23:40 Nucleated RBC % (auto) 0 % 02/26/23 23:40 Nucleated RBC % (auto) Cancelled 02/26/23 23:40 Nucleated RBCs # 0.0 /100WBC 02/26/23 23:40 Nucleated RBCs # Cancelled 02/26/23 23:40 Sodium Cancelled 02/26/23 23:40 Potassium Cancelled 02/26/23 23:40 Chloride Cancelled 02/26/23 23:40 Carbon Dioxide Cancelled 02/26/23 23:40 Anion Gap Cancelled 02/26/23 23:40 BUN Cancelled 02/26/23 23:40 Creatinine Cancelled 02/26/23 23:40 GFR Calculation Cancelled 02/26/23 23:40 Glucose Cancelled 02/26/23 23:40 Calculated Osmolality Cancelled 02/26/23 23:40 Calcium Cancelled 02/26/23 23:40 Total Bilirubin Cancelled 02/26/23 23:40 AST Cancelled 02/26/23 23:40 ALT Cancelled 02/26/23 23:40 Alkaline Phosphatase Cancelled 02/26/23 23:40 Troponin T Baseline Cancelled 02/26/23 23:40 Total Protein Cancelled 02/26/23 23:40 Albumin Cancelled 02/26/23 23:40 Globulin Cancelled 02/26/23 23:40 Lipase Cancelled 02/26/23 23:40 All radiology interpretation(s) finalized by discharge Discharge Plan Discharge Patient Disposition: Home Clinical Impression: Chest pain Condition: Stable Prescriptions: No Action albuterol sulfate [Proventil HFA] 90 mcg/actuation HFA aerosol inhaler 2 puff INHALATION Q4H PRN (Reason: Shortness Of Breath) montelukast 10 mg tablet 10 mg PO BID fluticasone propionate [Allergy Relief (fluticasone)] 50 mcg/actuation spray,suspension See Rx Instructions .ROUTE .COMPLEX PRN (Reason: Nasal Congestion) Rx Instructions: 1 spray intranasally in each nare up to bid hydroxyzine HCl 25 mg tablet 25 mg PO BID PRN (Reason: anxiety) Qty: 60 2RF omeprazole 20 mg capsule,delayed release(DR/EC) 20 mg PO DAILY All Day Allergy (cetirizine) 10 mg capsule 10 mg PO DAILY PRN fluticasone propion-salmeterol [Advair Diskus] 100-50 mcg/dose blister with device 1 inh inhalation DAILY buspirone 15 mg tablet 15 mg PO BID Qty: 60 2RF bupropion HCl 150 mg tablet extended release 24 hr See Rx Instructions .ROUTE .COMPLEX Qty: 30 2RF Dose Instruction: TAKE ONE TABLET BY MOUTH IN THE MORNING Rx Instructions: TAKE ONE TABLET BY MOUTH IN THE MORNING prazosin 2 mg capsule 2 mg PO .HS Qty: 30 2RF aripiprazole 5 mg tablet See Rx Instructions .ROUTE .COMPLEX Qty: 30 2RF Dose Instruction: TAKE ONE TABLET BY MOUTH ONCE DAILY Rx Instructions: TAKE ONE TABLET BY MOUTH ONCE DAILY venlafaxine 75 mg capsule,extended release 24hr See Rx Instructions .ROUTE .COMPLEX Qty: 30 2RF Dose Instruction: TAKE ONE CAPSULE BY MOUTH EVERY DAY Rx Instructions: TAKE ONE CAPSULE BY MOUTH EVERY DAY venlafaxine 150 mg capsule,extended release 24hr See Rx Instructions .ROUTE .COMPLEX Qty: 30 2RF Dose Instruction: TAKE ONE CAPSULE BY MOUTH EVERY DAY Rx Instructions: TAKE ONE CAPSULE BY MOUTH EVERY DAY acetaminophen [Tylenol Arthritis Pain] 650 mg Tablet Extended Release 1,300 mg PO PRN albuterol sulfate 2.5 mg /3 mL (0.083 %) Solution For Nebulization 2.5 mg inhalation Q6H PRN (Reason: Shortness Of Breath) Discharge Orders: Discharge ED (Routine); Ordered 02/27/23 Ordered By: Bharathi Thomas Referrals: Gaurav Yu MD [Primary Care Provider] - Patient Instructions: Chest Pain (ED) Activity Restrictions/Additional Instructions: Increase oral hydration. See handout over generalize instructions. Call your primary care provider tomorrow with an update of your symptoms and schedule appointment for further management/evaluation. Return to the emergency department for any rapid or worsening symptoms to include but not limited to worsening chest pain, shortness of breath, palpitations, lightheadedness, dizziness, nausea, vomiting, or as needed. 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 [employer] Documented by User: Kelvin Muñiz DO 02/27/23 17:26 HPI - Chest Pain 2 General: Chief Complaint: Chest Pain Stated Complaint: CP Time Seen by Provider: 02/26/23 23:07 [facility] ED 2 PFSH: Medical History (Updated 02/27/23 @ 01:11 by HARRIS Monae) On combination antipsychotic drug therapy Major depressive disorder, recurrent, moderate Lumbar paraspinal muscle spasm Asthma Psychiatric care Family History Grandmother Hepatitis C test positive Other CAD (coronary artery disease) Cancer Diabetes Hypertension Lung disease Psychiatric illness Social History (Updated 12/31/22 @ 10:12 by Gayle Raya LPN) Smoking and tobacco/nicotine status: never used tobacco/nicotine Second hand smoke exposure: No Alcohol intake: never Substance/Drug Use: never Adopted: No Caregiver/support person: Yes (Mother - they care for each other) Lives independently: Yes Household members: family and other Details: mother Housing: House Marital status: Marital status details: recent 10.08.21 Number of children: 0 Number of grandchildren: 0 Highest education level completed: High School Graduate service: No Current occupational status: employed Current occupation: [employer] 60 Current occupational exposures/hazards: No Pets and animals: Yes (15 cats and 2 dogs) Pets & animals: cat(s) and dog(s) Leisure activites: art and other Leisure activities details: watch TV, writting Sexually active: No Do you think of yourself as: Straight/Heterosexual Current gender identity: Female Connie/Episcopalian: Wicca Special connie needs: No Agree to transfusion: Yes Course 2 Vital Signs: Vital signs: Vital Signs Pulse Rate 75 02/27/23 01:31 Respiratory Rate 16 02/27/23 01:31 Blood Pressure 114/76 02/26/23 19:51 Pulse Oximetry 96 02/27/23 01:31 Oxygen Delivery Me thod Room Air 02/26/23 19:51 MDM - Chest Pain Medical Decision Making Patient is a 42-year-old female with a past medical history significant for depression who presents to the emergency department for evaluation of acute onset chest pain. On physical examination patient is nontoxic and in no acute distress. Vital signs remained stable throughout the ED course. Patient is afebrile. CBC showed leukocytosis at 15.9. CMP, lipase, and troponin all grossly unremarkable. EKG normal sinus rhythm. Chest x-ray showed no acute cardiopulmonary pathology. Patient states that her chest pain had completely resolved. Abdomen is soft and nontender. Patient denies any other symptoms at this time. Patient does have a significant psychiatric history which she has been taking multiple medications for. Symptoms could be related to anxiety. Based off history and physical examination I do not believe the patient symptoms are emergent and warrant further emergent evaluation at this time. I do not think acute coronary syndrome is likely at this time. Patient PERC'd out for pulmonary embolism. I do not think pulmonary embolism is likely at this time. Increase oral hydration. See handout over generalize instructions. Call your primary care provider tomorrow with an update of your symptoms and schedule appointment for further management/evaluation. Return to the emergency department for any rapid or worsening symptoms to include but not limited to worsening chest pain, shortness of breath, palpitations, lightheadedness, dizziness, nausea, vomiting, or as needed. Patient stated understanding of all discharge instructions and was agreeable to the plan of care. I discussed patient's history, exam, and all findings with Dr. Muñiz in the emergency department who agreed my assessment and plan. He did not feel the patient required admission or further evaluation at this time. Differential diagnosis includes but is not limited to acute coronary syndrome, pulmonary embolism, anxiety, costochondritis, GERD, pneumothorax, pancreatitis This patient was originally seen by Mr. Martha PA-C. I agree with his history, evaluation, and treatment. Lab Data 02/26/23 23:40 02/26/23 23:30 Radiology Impressions Chest X-Ray 02/26/23 19:38 IMPRESSION: No acute findings. Laboratory Results WBC 15.90 10^3/uL (3.29-11.43) H 02/26/23 23:40 WBC Cancelled 02/26/23 23:40 Corrected WBC Cancelled 02/26/23 23:40 RBC 4.35 10^6/uL (3.85-5.65) 02/26/23 23:40 RBC Cancelled 02/26/23 23:40 Hgb 12.30 g/dL (11.27-16.99) 02/26/23 23:40 Hgb Cancelled 02/26/23 23:40 Hct 38.3 % (36-47) 02/26/23 23:40 Hct Cancelled 02/26/23 23:40 MCV 88.0 fl (85-98) 02/26/23 23:40 MCV Cancelled 02/26/23 23:40 MCH 28.3 pg (27-33) 02/26/23 23:40 MCH Cancelled 02/26/23 23:40 MCHC 32.1 g/dL (30-55) 02/26/23 23:40 MCHC Cancelled 02/26/23 23:40 RDW 13.1 % (12.1-15.1) 02/26/23 23:40 RDW Cancelled 02/26/23 23:40 Plt Count 347 10^3/cmm (157-399) 02/26/23 23:40 Plt Count Cancelled 02/26/23 23:40 MPV 10.2 fL (7.4-10.4) 02/26/23 23:40 MPV Cancelled 02/26/23 23:40 Gran % Cancelled 02/26/23 23:40 Neut % (Auto) 82.9 % 02/26/23 23:40 Neut % (Auto) Cancelled 02/26/23 23:40 Lymph % (Auto) 11.3 % 02/26/23 23:40 Lymph % (Auto) Cancelled 02/26/23 23:40 Hamblen % (Auto) 4.3 % 02/26/23 23:40 Hamblen % (Auto) Cancelled 02/26/23 23:40 Eos % (Auto) 0.8 % 02/26/23 23:40 Eos % (Auto) Cancelled 02/26/23 23:40 Baso % (Auto) 0.3 % 02/26/23 23:40 Baso % (Auto) Cancelled 02/26/23 23:40 Neut # (Auto) 13.20 10^3/uL (1.8-7.7) H 02/26/23 23:40 Neut # (Auto) Cancelled 02/26/23 23:40 Lymph # (Auto) 1.8 10^3/uL (0.8-4.8) 02/26/23 23:40 Lymph # (Auto) Cancelled 02/26/23 23:40 Hamblen # (Auto) 0.7 10^3/uL (0.2-0.9) 02/26/23 23:40 Hamblen # (Auto) Cancelled 02/26/23 23:40 Eos # (Auto) 0.1 10^3/uL (0.0-0.8) 02/26/23 23:40 Eos # (Auto) Cancelled 02/26/23 23:40 Baso # (Auto) 0.1 10^3/uL (0.0-0.1) 02/26/23 23:40 Baso # (Auto) Cancelled 02/26/23 23:40 Absolute Gran (auto) Cancelled 02/26/23 23:40 Nucleated RBC % (auto) 0 % 02/26/23 23:40 Nucleated RBC % (auto) Cancelled 02/26/23 23:40 Nucleated RBCs # 0.0 /100WBC 02/26/23 23:40 Nucleated RBCs # Cancelled 02/26/23 23:40 Sodium Cancelled 02/26/23 23:40 Potassium Cancelled 02/26/23 23:40 Chloride Cancelled 02/26/23 23:40 Carbon Dioxide Cancelled 02/26/23 23:40 Anion Gap Cancelled 02/26/23 23:40 BUN Cancelled 02/26/23 23:40 Creatinine Cancelled 02/26/23 23:40 GFR Calculation Cancelled 02/26/23 23:40 Glucose Cancelled 02/26/23 23:40 Calculated Osmolality Cancelled 02/26/23 23:40 Calcium Cancelled 02/26/23 23:40 Total Bilirubin Cancelled 02/26/23 23:40 AST Cancelled 02/26/23 23:40 ALT Cancelled 02/26/23 23:40 Alkaline Phosphatase Cancelled 02/26/23 23:40 Troponin T Baseline Cancelled 02/26/23 23:40 Total Protein Cancelled 02/26/23 23:40 Albumin Cancelled 02/26/23 23:40 Globulin Cancelled 02/26/23 23:40 Lipase Cancelled 02/26/23 23:40 Discharge Plan Discharge Patient Disposition: Home Clinical Impression: Chest pain Condition: Stable Prescriptions: No Action albuterol sulfate [Proventil HFA] 90 mcg/actuation HFA aerosol inhaler 2 puff INHALATION Q4H PRN (Reason: Shortness Of Breath) montelukast 10 mg tablet 10 mg PO BID fluticasone propionate [Allergy Relief (fluticasone)] 50 mcg/actuation spray,suspension See Rx Instructions .ROUTE .COMPLEX PRN (Reason: Nasal Congestion) Rx Instructions: 1 spray intranasally in each nare up to bid hydroxyzine HCl 25 mg tablet 25 mg PO BID PRN (Reason: anxiety) Qty: 60 2RF omeprazole 20 mg capsule,delayed release(DR/EC) 20 mg PO DAILY All Day Allergy (cetirizine) 10 mg capsule 10 mg PO DAILY PRN fluticasone propion-salmeterol [Advair Diskus] 100-50 mcg/dose blister with device 1 inh inhalation DAILY buspirone 15 mg tablet 15 mg PO BID Qty: 60 2RF bupropion HCl 150 mg tablet extended release 24 hr See Rx Instructions .ROUTE .COMPLEX Qty: 30 2RF Dose Instruction: TAKE ONE TABLET BY MOUTH IN THE MORNING Rx Instructions: TAKE ONE TABLET BY MOUTH IN THE MORNING prazosin 2 mg capsule 2 mg PO .HS Qty: 30 2RF aripiprazole 5 mg tablet See Rx Instructions .ROUTE .COMPLEX Qty: 30 2RF Dose Instruction: TAKE ONE TABLET BY MOUTH ONCE DAILY Rx Instructions: TAKE ONE TABLET BY MOUTH ONCE DAILY venlafaxine 75 mg capsule,extended release 24hr See Rx Instructions .ROUTE .COMPLEX Qty: 30 2RF Dose Instruction: TAKE ONE CAPSULE BY MOUTH EVERY DAY Rx Instructions: TAKE ONE CAPSULE BY MOUTH EVERY DAY venlafaxine 150 mg capsule,extended release 24hr See Rx Instructions .ROUTE .COMPLEX Qty: 30 2RF Dose Instruction: TAKE ONE CAPSULE BY MOUTH EVERY DAY Rx Instructions: TAKE ONE CAPSULE BY MOUTH EVERY DAY acetaminophen [Tylenol Arthritis Pain] 650 mg Tablet Extended Release 1,300 mg PO PRN albuterol sulfate 2.5 mg /3 mL (0.083 %) Solution For Nebulization 2.5 mg inhalation Q6H PRN (Reason: Shortness Of Breath) Discharge Orders: Discharge ED (Routine); Ordered 02/27/23 Ordered By: Bharathi Thomas Referrals: Gaurav Yu MD [Primary Care Provider] - Patient Instructions: Chest Pain (ED) Activity Restrictions/Additional Instructions: Increase oral hydration. See handout over generalize instructions. Call your primary care provider tomorrow with an update of your symptoms and schedule appointment for further management/evaluation. Return to the emergency department for any rapid or worsening symptoms to include but not limited to worsening chest pain, shortness of breath, palpitations, lightheadedness, dizziness, nausea, vomiting, or as needed. 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
[2023-02-27 00:05] LABS: Alanine Aminotransferase 24 U/L (0-33); Albumin Level 4.1 g/dL (3.5-5.2); Alkaline Phosphatase 120 U/L (35-105); Aspartate Amino Transferase 23 U/L (0-32); Blood Urea Nitrogen 14 mg/dL (6-20); Calcium 9.2 mg/dL (8.5-10.5); Carbon Dioxide 23 mmol/L (22-29); Chloride 103 mmol/L (98-107); Globulin 3.4 g/dL (1.3-4.6); Glucose 104 mg/dL (65-115); Osmolality Calculated 283 mOsm/kg (285-295); Sodium 136 mmol/L (136-145); Total Bilirubin 0.2 mg/dL (0.15-1.2); Total Protein 7.5 g/dL (6.6-8.7)
[2023-02-27 00:06] LABS: Troponin(5th) Baseline < 6 ng/L (0-10)
[2023-02-27 00:11] LABS: Lipase 36 U/L (13-60)
[2023-02-27 00:19] LABS: Basophils # 0.1 10^3/uL (0.0-0.1); Basophils % 0.3 %; Eosinophils # 0.1 10^3/uL (0.0-0.8); Eosinophils % 0.8 %; Hematocrit 38.3 % (36-47); Lymphocytes # 1.8 10^3/uL (0.8-4.8); Lymphocytes % 11.3 %; Mean Corpuscular HGB Conc 32.1 g/dL (30-55); Mean Corpuscular Hemoglobin 28.3 pg (27-33); Mean Platelet Volume 10.2 fL (7.4-10.4); Monocytes # 0.7 10^3/uL (0.2-0.9); Monocytes % 4.3 %; Neutrophils % 82.9 %; Nucleated Red Blood Cells % 0 %; Platelet Count 347 10^3/cmm (157-399); Red Blood Count 4.35 10^6/uL (3.85-5.65); Red Cell Distribution Width 13.1 % (12.1-15.1)
[2023-02-27 00:30] LABS: Slide Review Slide Review Perform
[2023-02-27 01:31] VITALS: PULSE 75; RESP 16; O2SAT 96
== END 2023-02-27 01:29 | disposition home or self-care (01) ==
PROVIDERS: Emergency Medicine; Emergency Provider Physician Assistant; PCP Family Medicine
DX: R07.9 Chest pain, unspecified (principal)
CPT/HCPCS: 71045; 80053; 83690; 84484; 85025; 93005; 99285

== ENCOUNTER 2023-04-21 09:28 | Outpatient (CLI) | payer MEDICAID, SELFPAY ==
[2023-01-18 16:31] VITALS: BP 134/88; BMI 38.1
--- NOTE | 2023-04-21 09:40 | XR_ITS ---
WS: [id number] XR elbow RT min 3V* [id number] REASON FOR EXAM: R ELBOW PAIN FINDINGS: No joint effusion. No fracture identified. Joint spaces of the right elbow are intact and relatively well preserved. No soft tissue abnormality. IMPRESSION: No significant abnormality.
== END 2023-04-21 09:29 | disposition home or self-care (01) ==
LOC: RAD 09:33
PROVIDERS: PCP Family Medicine; Visit Provider Nurse Practitioner Family
DX: M25.521 Pain in right elbow (principal)
CPT/HCPCS: 73080

== ENCOUNTER → 2023-09-11 11:30 | Outpatient (BNVA) | payer MEDICAID, SELFPAY ==
[2023-06-22 08:08] VITALS: BP 134/88; BMI 38.1
== END ==
PROVIDERS: PCP Family Medicine; Visit Provider Family Medicine
DX: R39.9 Unspecified symptoms and signs involving the genitourinary system (principal)
CPT/HCPCS: 81000

== ENCOUNTER → 2023-09-27 08:46 | Outpatient (BNVA) | payer MEDICAID, SELFPAY ==
[2023-06-22 08:08] VITALS: BP 134/88; BMI 38.1
== END ==
PROVIDERS: PCP Family Medicine; Visit Provider Nurse Practitioner
DX: M77.11 Lateral epicondylitis, right elbow
CPT/HCPCS: 73080

== ENCOUNTER → 2023-12-07 10:26 | Outpatient (BNVA) | payer OTHER, SELFPAY ==
[2023-10-18 10:12] VITALS: BP 134/88; BMI 38.1
== END ==
PROVIDERS: PCP Family Medicine; Visit Provider Nurse Practitioner
DX: F33.1 Major depressive disorder, recurrent, moderate (principal)
CPT/HCPCS: 80061; 83036

== ENCOUNTER 2023-12-29 10:38 | Outpatient (CLI) | payer MEDICAID, SELFPAY ==
[2023-12-22 16:05] VITALS: BP 136/89; BMI 33.5
--- NOTE | 2023-12-29 10:43 | XR_ITS ---
WS: [id number] Exam: XR ankle LT min 3V* [id number] Date/Time of Exam: 12/29/2023 10:49 AM Reason For Exam: ANKLE SWELLING AND PAIN No fracture or dislocation. The ankle mortise is equidistant. Mild soft tissue swelling about the ank le. XR/XR ankle LT min 3V* [id number] IMPRESSION: 1. No fracture identified.
--- NOTE | 2023-12-29 10:43 | XR_ITS ---
WS: [id number] Exam: XR ankle RT min 3V* [id number] Date/Time of Exam: 12/29/2023 10:49 AM Reason For Exam: ANKLE SWELLING AND PAIN No acute fracture or dislocation. The ankle mortise is well-maintained. Mild soft tissue swelling abo ut the ankle. XR/XR ankle RT min 3V* [id number] IMPRESSION: 1. Mild soft tissue swelling-no fracture.
== END 2023-12-29 10:39 | disposition home or self-care (01) ==
LOC: RAD 10:40
PROVIDERS: PCP Family Medicine; Visit Provider Family Medicine
DX: M25.471 Effusion, right ankle (principal); M25.571 Pain in right ankle and joints of right foot; M25.572 Pain in left ankle and joints of left foot
CPT/HCPCS: 73610

== ENCOUNTER → 2025-02-06 09:04 | Outpatient (BNVA) | payer OTHER, SELFPAY ==
[2024-10-31 07:26] VITALS: BP 136/89; BMI 33.5
== END ==
PROVIDERS: PCP Family Medicine; Visit Provider Nurse Practitioner
DX: F33.1 Major depressive disorder, recurrent, moderate (principal)
CPT/HCPCS: 80061; 83036